=== PATIENT | female | born 1965 ===

== ENCOUNTER → 2020-03-22 14:17 | Outpatient (BNVA) | payer MEDICAID, SELFPAY | PROVIDERS: PCP Nurse Practitioner Family; Referring Provider Nurse Practitioner Family; Visit Provider Internal Medicine Gastroenterology | DX: K76.0 Fatty (change of) liver, not elsewhere classified (principal); D12.6 Benign neoplasm of colon, unspecified; Z98.890 Other specified postprocedural states | CPT/HCPCS: 99212 ==

== ENCOUNTER 2020-09-09 19:58 | Emergency (ER) | payer MEDICAID, SELFPAY ==
--- NOTE | ~2020-09-09 | CT_ITS ---
EXAMINATION: CT HEAD WITHOUT CONTRAST CLINICAL INFORMATION: Headache COMPARISON: Portions of a previous study 05/25/09 TECHNIQUE: Multidetector CT examination of the head is performed without contrast. This CT examination was performed using dose optimization techniques as appropriate, variously including the following: *Automated exposure control *Adjustment of mA and/or kV according to patient size (this includes techniques or standardized protocols for targeted exams where dose is matched to indication/reason for exam; i.e. extremities or head) *Use of iterative reconstruction technique DLP: 701 mGy-cm FINDINGS: There is no evidence of a recent intracranial hemorrhage or extra-axial collection. The midline structures are nondisplaced. The ventricles, cisterns, and sulci are within normal limits. There is no evidence of an intra-axial mass. There are no suspicious focal areas of abnormal brain attenuation. The patrick-white interface is within normal limits. There is no evidence of acute territorial infarct. The paranasal sinuses and mastoids are within normal limits. CT/CT head/brain wo con IMPRESSION: 1. There is no evidence of a recent intracranial hemorrhage. 2. No acute infarct. 3. No fluid level.
[2020-09-09 20:08] VITALS: BP 127/73; PULSE 71; RESP 18; TEMP 36.4; O2SAT 96; BMI 27.9
--- NOTE | 2020-09-09 21:13 | ED_ITS ---
HPI - General Adult General Chief complaint: General Medical Stated complaint: migraine Time Seen by Provider: 09/09/20 21:00 Source: patient Mode of arrival: ambulatory Limitations: no limitations History of Present Illness HPI narrative: 54-year-old female who presents emergency department for evaluation headache, nausea, fatigue, shortness of breath and easy bruisability. The patient states that she got the [employer] COVID-19 vaccine on 08/16/2020 (24 days prior to evaluation). She states the for the last 9 days she had a headache. She states that she really gets headaches. She describes the headache as a right-sided, constant, throbbing sensation which was 5/10 at its worst. She had associated nausea and occasional visual change of her right eye which she describes blurred vision mainly at night. The patient was taking ibuprofen 800 mg 3 times a day and she states that she took her last dose last night. She states when she woke up this morning her headache resolved. She states that she is just not feeling herself is concerned about her symptoms and is concerned that they may be related to the [employer] vaccine. She states she has noticed several bruises are not secondary to injury. She has 2 small bruises on her left and right arm in the antecubital fossa area and a smal l bruise on her left lateral hip. She denies any bleeding from her nose, gums, vagina or rectum. Related Data Previous Rx's Medication Instructions Recorded vitamin E (dl, acetate) 400 unit 400 unit PO DAILY 30 Days #30 cap 03/22/20 capsule Allergies Allergy/AdvReac Type Severity Reaction Status Date / Time Latex Allergy Unknown Hives Uncoded 09/09/20 20:16 Review of Systems Review of Systems: Yes all other systems are reviewed and are negative [facility] Past Medical History [facility] Narrative: Past medical history sent for asthma. The patient smokes 1/2 pack of cigarettes per day times 36 years, she denies alcohol and drug use. Surgical History History of colonoscopy Hx of carpal tunnel repair Hx of cholecystectomy Hx of tubal ligation Family History Family History Father No problems noted. Mother Hx of diabetes insipidus Social History Social History Alcohol intake: never Smoking Status: Never smoker Tobacco Type: Cigarette Use of substances other than those prescribed or required for medical reasons: No Advance Directives: No Advance Directives Information Provided: Yes Physical Exam Vital Signs: Vital Signs: Last Vital Signs Temp 97.5 F 09/09/20 20:08 Pulse 77 09/09/20 22:00 Resp 15 09/09/20 22:00 BP 111/67 09/09/20 22:00 Pulse Ox 96 09/09/20 22:00 Body Mass Index 27.9 Const: General: cooperative and healthy appearing Orientation/consciousness: oriented to person and oriented to place Limitations: no limitations HENMT: Head: Yes normal to inspection, Yes normocephalic and Yes atraumatic Ears: external ears normal General nose exam: Normal external nose present Face and sinus: Yes normal facial exam Mouth: Normal oral and palatal mucosa present Throat: Yes posterior oropharynx normal Eyes: Periorbital: periorbital findings normal Eyelids: Yes eyelids normal Conjunctivae: conjunctivae normal Sclerae: sclerae normal Corneas: corneas normal Pupils: Equal, round and reactive pupils present Direct Ophthalmoscopy: normal light reflex Neck: Neck: Yes full ROM, Yes no lymphadenopathy, Yes no meningeal signs, Yes trachea midline and Yes supple Chest: Chest palpation & inspection: normal inspection of the chest and normal palpation of entire chest wall Resp: Effort & Inspection: normal respiratory effort and able to speak in complete sentences Auscultation: clear to auscultation bilaterally Cardio: Rate: regular rate Rhythm: regular rhythm Heart sounds: S1 normal heart sound present, S2 normal heart sound present and no murmurs GI: Inspection: Yes normal to inspection Palpation (GI): Soft to palpation, nontender, no guarding, not rigid and No hepatosplenomegaly present Auscultation: normal bowel sounds : General: Yes no CVA tenderness Back/Spine/Pelvis: Back: no CVA tenderness Cervical Spine: normal cervical lordosis Thoracic/Lumbar Spine: thoracic and lumbar spine normal to inspection Skin: Other: Very small area of ecchymosis to her left and right antecubital fossa and to her left lateral hip. Lesions: no lesions Rashes: no rashes Wounds: no wounds Neuro: General: oriented to person, oriented to place and no meningeal signs Cranial nerves: Yes CN's II-XII intact bilaterally and Yes Equal, round and reactive pupils present Cognition (Neuro): normal cognition Motor exam (neuro): 5/5 motor strength present throughout Extrem: General: Yes normal to inspection and Yes full ROM Psych: Appearance: well kempt Mental Status: mental status grossly normal Speech and movement: Normal speech and movement present Affect: normal affect Attitude: cooperative Thought process: Normal thought process present Thought content: Normal thought content present Course Course Course Narrative: 54-year-old female who presents emergency department for evaluation of a headache that lasted 9 days which she was treating with ibuprofen 800 mg 3 times a day, her headache resolved this morning , fatigue, shortness of breath, nausea and several small bruises on her arms and left hip. Patient receive the [facility] COVID-19 vaccination 24 days prior to presentation. Patient's vital signs were normal. Physical examination reveals some very small bruises on her left and right antecubital fossa under left hip. Her exam was otherwise unremarkable. I ordered a CBC, CMP, PT INR, PTT, COVID- 19 test, urinalysis, urine on the patient. Patient's nausea was treated with Zofran ODT 4 mg dissolved in mouth. 0004: The patient's laboratory evaluation was unremarkable. The patient's coags were normal except for a slight elevation in her PTT. The patient's urinalysis was negative. COVID-[address] scan of the brain without IV contrast was negative. At this time I suspect the patient may have a viral syndrome not related to the [employer] COVID-19 vaccination. I did discuss this with the patient. The patient was discharged home. She was given a note not return to work until 09/13/2020. Medical Decision Making Lab Data Result diagrams: 09/09/20 23:01 09/09/20 23:01 Labs: Lab Results 09/09/20 09/09/20 09/09/20 Range/Units 22:18 22:18 23:01 WBC 9.5 (4.8-10.8) X10*3/uL RBC 4.32 (4.20-5.50) X10*6/uL Hgb 13.2 (12.0-16.0) g/dl Hct 40.0 (37-47) % MCV 92.6 (80-98) fL MCH 30.6 (27.0-33.0) pg MCHC 33.0 (31.0-35.0) g/dl RDW 13.2 (11.0-16.0) % Plt Count 224 (160-400) X10*3/uL MPV 10.9 (9.4-12.3) fL Immature Gran % (Auto) 0.3 (0.0-0.4) % Neut % (Auto) 51.5 (45-73) % Lymph % (Auto) 37.8 (20-40) % [place] % (Auto) 5.9 (2-11) % Eos % (Auto) 3.9 (0-4) % Baso % (Auto) 0.6 (0-2) % Lymph # (Auto) 3.6 (1.2-4.9) X10*3/uL [place] # (Auto) 0.6 (0.1-1.2) X10*3/uL Eos # (Auto) 0.4 (0.0-0.4) X10*3/uL Baso # (Auto) 0.1 (0.0-0.2) X10*3/uL Abs Immat Gran (auto) 0.03 (0.00-0.03) X10*3/uL Absolute Neuts (auto) 4.9 (2.0-8.3) X10*3/uL Absolute Nucleated RBC 0.000 (0.0-0.012) X10*3/uL Nucleated RBC % (auto) 0.0 (0.0-0.2) /100WBC PT (10.8-13.0) SEC INR (0.9-1.1) APTT (24.1-38.0) SEC Sodium (135-145) mmol/L Potassium (3.3-5.1) mmol/L Chloride (96-108) mmol/L Carbon Dioxide (22-29) mmol/L Anion Gap (12-20) BUN (9-16) mg/dL Creatinine (0.5-1.4) mg/dL Estim Creat Clear Calc Estimated GFR Random Glucose (60-115) mg/dL Calcium (8.4-10.2) mg/dL Total Bilirubin (0.0-1.0) mg/dL AST (5-31) U/L ALT (0-31) U/L Alkaline Phosphatase (39-117) U/L Total Protein (6.5-8.0) g/dL Albumin (3.5-5.0) g/dL Urine Color YELLOW Urine Appearance CLEAR Urine pH 6.0 (5.0-8.0) Ur Specific [place] 1.020 (1.005-1.025) Urine Protein NEG (NEG-TRACE) MG/DL Urine Glucose (UA) NEG (NEG) MG/DL Urine Ketones NEG (NEG) MG/DL Urine Blood NEG (NEG) Urine Nitrite NEG (NEG) Ur Leukocyte Esterase NEG (NEG) Urine Test NEGATIVE (NEGATIVE) COVID-19 (RADHA) (Negative) COVID-19 Clin Com 09/09/20 09/09/20 09/09/20 Range/Units 23:01 23:01 23:01 WBC (4.8-10.8) X10*3/uL RBC (4.20-5.50) X10*6/uL Hgb (12.0-16.0) g/dl Hct (37-47) % MCV (80-98) fL MCH (27.0-33.0) pg MCHC (31.0-35.0) g/dl RDW (11.0-16.0) % Plt Count (160-400) X10*3/uL MPV (9.4-12.3) fL Immature Gran % (Auto) (0.0-0.4) % Neut % (Auto) (45-73) % Lymph % (Auto) (20-40) % [place] % (Auto) (2-11) % Eos % (Auto) (0-4) % Baso % (Auto) (0-2) % Lymph # (Auto) (1.2-4.9) X10*3/uL [place] # (Auto) (0.1-1.2) X10*3/uL Eos # (Auto) (0.0-0.4) X10*3/uL Baso # (Auto) (0.0-0.2) X10*3/uL Abs Immat Gran (auto) (0.00-0.03) X10*3/uL Absolute Neuts (auto) (2.0-8.3) X10*3/uL Absolute Nucleated RBC (0.0-0.012) X10*3/uL Nucleated RBC % (auto) (0.0-0.2) /100WBC PT 12.9 (10.8-13.0) SEC INR 1.1 (0.9-1.1) APTT 46.5 H (24.1-38.0) SEC Sodium 141 (135-145) mmol/L Potassium 3.7 (3.3-5.1) mmol/L Chloride 106 (96-108) mmol/L Carbon Dioxide 24 (22-29) mmol/L Anion Gap 15 (12-20) BUN 13 (9-16) mg/dL Creatinine 0.80 (0.5-1.4) mg/dL Estim Creat Clear Calc 93.1 Estimated GFR > 60 Random Glucose 109 (60-115) mg/dL Calcium 9.4 (8.4-10.2) mg/dL Total Bilirubin 0.5 (0.0-1.0) mg/dL AST 17 (5-31) U/L ALT 38 H (0-31) U/L Alkaline Phosphatase 85 (39-117) U/L Total Protein 7.7 (6.5-8.0) g/dL Albumin 4.2 (3.5-5.0) g/dL Urine Color Urine Appearance Urine pH (5.0-8.0) Ur Specific [place] (1.005-1.025) Urine Protein (NEG-TRACE) MG/DL Urine Glucose (UA) (NEG) MG/DL Urine Ketones (NEG) MG/DL Urine Blood (NEG) Urine Nitrite (NEG) Ur Leukocyte Esterase (NEG) Urine Test (NEGATIVE) COVID-19 (RADHA) Negative (Negative) COVID-19 Clin Com See Note Discharge Plan Discharge Clinical Impression: Nausea, Viral syndrome Headache Qualifiers: Headache type: other headache syndrome Qualified Code(s): G44.89 - Other headache syndrome Patient Disposition: Home, Self-Care Instructions: Viral Syndrome (ED) Additional Instructions: Take ibuprofen 200 mg pills, 3 pills every 6 hours as needed for pain. Take Tylenol (acetaminophen) 500 mg pills, 2 pills every 4 to 6 hours as needed for pain. Follow-up with your doctor in 2 days. Please return to the emergency department if your symptoms get worse or if you develop any symptoms that are concerning to you. Prescriptions: No Action vitamin E (dl, acetate) 400 unit capsule 400 unit PO DAILY 30 Days Qty: 30 RF: 11 Stand Alone Forms: Work/School Release Interventions: ED Discharge Assessment Last Done: 09/10/20 00:34
[2020-09-09 22:00] VITALS: BP 111/67; PULSE 77; RESP 15; O2SAT 96
[2020-09-09 22:25] LABS: Glucose Urine UA NEG (NEG); Leukocyte Esterase Urine NEG (NEG); Nitrite Urine NEG (NEG); Urine Blood NEG (NEG); Urine Ketones NEG (NEG); Urine Protein NEG (NEG-TRACE)
[2020-09-09 22:26] LABS: Appearance Urine CLEAR; Color Urine YELLOW; UPreg QC Valid YES; Urine Pregnancy NEGATIVE (NEGATIVE)
[2020-09-09 23:09] LABS: Basophils Absolute Auto 0.1 X10*3/uL (0.0-0.2); Basophils Percent Auto 0.6 % (0-2); Eosinophils Absolute Auto 0.4 X10*3/uL (0.0-0.4); Eosinophils Percent Auto 3.9 % (0-4); Hemoglobin 13.2 g/dl (12.0-16.0); Imm Gran Abs Auto 0.03 X10*3/uL (0.00-0.03); Imm Gran Pct Auto 0.3 % (0.0-0.4); Lymphocytes Absolute Auto 3.6 X10*3/uL (1.2-4.9); Lymphocytes Percent Auto 37.8 % (20-40); MANUAL DIFF FLAG NO; Mean Corpuscular Hemoglobin 30.6 pg (27.0-33.0); Mean Corpuscular Volume 92.6 fL (80-98); Mean Platelet Volume 10.9 fL (9.4-12.3); Monocytes Absolute Auto 0.6 X10*3/uL (0.1-1.2); Monocytes Percent Auto 5.9 % (2-11); Neutrophils Absolute Auto 4.9 X10*3/uL (2.0-8.3); Neutrophils Percent Auto 51.5 % (45-73); Platelet Count 224 X10*3/uL (160-400); Red Blood Count 4.32 X10*6/uL (4.20-5.50); Red Cell Distribution Width 13.2 % (11.0-16.0); White Blood Count 9.5 X10*3/uL (4.8-10.8)
[2020-09-09 23:18] LABS: INTERNATIONAL NORM RATIO 1.1 (0.9-1.1); Prothrombin Time 12.9 SEC (10.8-13.0)
[2020-09-09 23:29] LABS: COVID-19 Test Negative (Negative); IDNOW Serial# 9DD0AD1C; Partial Thromboplastin Time 46.5 SEC (24.1-38.0)
[2020-09-09 23:35] LABS: Alanine Aminotransferase 38 U/L (0-31); Albumin Level 4.2 g/dL (3.5-5.0); Alkaline Phosphatase 85 U/L (39-117); Anion Gap 15 (12-20); Aspartate Amino Transferase 17 U/L (5-31); Bilirubin Total 0.5 mg/dL (0.0-1.0); Blood Urea Nitrogen 13 mg/dL (9-16); Calcium 9.4 mg/dL (8.4-10.2); Carbon Dioxide 24 mmol/L (22-29); Chloride 106 mmol/L (96-108); Creatinine Clr Calc Pharmacy 93.1; Estimated Glomerular Filt Rate > 60; Glucose Random 109 mg/dL (60-115); Potassium 3.7 mmol/L (3.3-5.1); Sodium 141 mmol/L (135-145); Total Protein 7.7 g/dL (6.5-8.0)
== END 2020-09-10 00:34 | disposition home or self-care (01) ==
PROVIDERS: Emergency Provider Emergency Medicine Emergency Medical Services
DX: B34.9 Viral infection, unspecified (principal); G44.89 Other headache syndrome; R11.0 Nausea; F17.210 Nicotine dependence, cigarettes, uncomplicated; Z71.6 Tobacco abuse counseling; Z20.822 Contact with and (suspected) exposure to COVID-19
CPT/HCPCS: 36415; 70450; 80053; 81003; 81025; 85025; 85610; 85730; 87635; 99284

== ENCOUNTER 2020-10-20 13:59 | Outpatient (REF) | payer MEDICAID, SELFPAY ==
--- NOTE | ~2020-10-20 | MM_ITS ---
EXAMINATION: MM SCREENING DIGITAL BREAST TOMOSYNTHESIS, BILATERAL CLINICAL INFORMATION: Screening. Asymptomatic. The lifetime risk of breast cancer based on the Tyrer-Cuzick Model is 18%. COMPARISON: Mammography: 04/23/2019, 04/17/2018, 03/07/2017 TECHNIQUE: Digital breast tomosynthesis is performed in both the craniocaudal and mediolateral oblique views along with computer-aided detection (CAD). Synthesized 2D images are generated from the tomosynthesis. FINDINGS: There are scattered areas of fibroglandular density (ACR BI-RADS breast composition Category b). Findings fibronodular pattern is similar to prior studies. There is no interval mass or architectural abnormality. No abnormal calcifications. Skin contours are smooth. No significant changes from prior studies. MM/MM tomosynthesis screening BI IMPRESSION: No mammographic evidence of malignancy. ASSESSMENT: BI-RADS 1: Negative RECOMMENDATION: Routine annual mammography screening. This patient's information was entered into a reminder system with a target due date for their next mammogram.
== END 2020-10-20 14:00 | disposition home or self-care (01) ==
LOC: HO.MAMMO 13:59
PROVIDERS: Visit Provider Nurse Practitioner Family
DX: Z12.31 Encounter for screening mammogram for malignant neoplasm of breast (principal)
CPT/HCPCS: 77063; 77067

== ENCOUNTER 2020-12-22 20:28 | Emergency (ER) | payer MEDICAID, SELFPAY ==
--- NOTE | ~2020-12-22 | XR_ITS ---
EXAMINATION: XR TOES, RIGHT CLINICAL INFORMATION: Pain and swelling of fifth toe COMPARISON: None TECHNIQUE: 3 views of the right toes were obtained. FINDINGS: There is a mildly comminuted and displaced transverse fracture of the distal shaft of the proximal phalangeal the fifth toe. Fracture line extends the articular surface of bone at the IP joint. There is no dislocation. XR/XR toe RT min 2V IMPRESSION: Fracture of the proximal phalangeal the fifth toe
[2020-12-22 20:36] VITALS: BP 106/67; PULSE 90; RESP 18; TEMP 36.6; O2SAT 98; BMI 28.1
--- NOTE | 2020-12-22 22:10 | ED.LOWEXIN ---
HPI - Extremity Injury (Lower) General Chief Complaint: Extremity Injury, Lower Stated Complaint: pinky inj Time Seen by Provider: 12/22/20 22:10 Source: patient Mode of arrival: ambulatory History of Present Illness HPI Narrative: 55-year-old female presenting to the ED complaining of right 5th toe pain and swelling s/p getting caught under couch [employer]. Reports mild tingling. Denies numbness, injury to other area, fever, chills complaint: foot injury Related Data Previous Rx's Medication Instructions Recorded vitamin E (dl, acetate) 180 mg 400 unit PO DAILY 30 Days #30 cap 03/22/20 (400 unit) capsule Allergies Allergy/AdvReac Type Severity Reaction Status Date / Time Latex Allergy Unknown Hives Uncoded 09/09/20 20:16 Review of Systems Review of Systems: Constitutional: No Fever, No Chills Musculoskeletal: + joint pain, No Myalgias, + Joint Swelling Skin: No Skin Lesions, No rash Neuro: No Weakness, No Numbness, + Paresthesias Yes all other systems are reviewed and are negative [facility] Past Medical History Attestation statement: The following information was validated with the patient. Surgical History History of colonoscopy Hx of carpal tunnel repair Hx of cholecystectomy Hx of tubal ligation Family History Family History Father No problems noted. Mother Hx of diabetes insipidus Social History Social History Unable to assess alcohol history related to: Unable to respond Alcohol intake: never Advance Directives: No Advance Directives Information Provided: Yes Patient : No Physical Exam Vital Signs: Vital Signs: Last Vital Signs Temp 97.8 F 12/22/20 20:36 Pulse 90 12/22/20 20:36 Resp 18 12/22/20 20:36 BP 106/67 12/22/20 20:36 Pulse Ox 98 12/22/20 20:36 Body Mass Index 28.1 Const: General: cooperative and healthy appearing Orientation/consciousness: patient oriented x3 Limitations: no limitations HENMT: Head: Yes normal to inspection Ears: hearing grossly normal bilaterally General nose exam: Normal external nose present Face and sinus: Yes normal facial exam Eyes: General: appearance normal, both eyes and all related structures EOM: EOMs intact bilaterally Neck: Neck: Yes normal visual inspection Resp: Effort & Inspection: normal respiratory effort and no respiratory distress Cardio: Rate: regular rate Peripheral pulses: dorsalis pedis present Skin: Rashes: no rashes Wounds: no wounds Neuro: General: patient oriented x3 Gait exam (Neuro): Normal gait present Extrem: Other: Right 5th toe with notable swelling, erythema and ecchymosis. Tender to palpation. NV intact. Sensation intact to light touch Course Course Course Narrative: XR toe RT min 2V IMPRESSION: Fracture of the proximal phalangeal the fifth toe >> annalise-tape apply to does Discharge Plan Discharge Clinical Impression: Fracture of fifth toe, right, closed Qualifiers: Encounter type: initial encounter Qualified Code(s): S92.501A - Displaced unspecified fracture of right lesser toe(s), initial encounter for closed fracture Patient Disposition: Home, Self-Care Instructions: Toe Fracture (ED) Additional Instructions: You have a fracture of her 5th toe Apply annalise tape at home Follow-up with Orthopedics Ice and elevate her foot Take Tylenol Motrin for pain Very begins look infected, pain is unbearable, or for becomes numb return to the ED please Prescriptions: No Action vitamin E (dl, acetate) 400 unit capsule 400 unit PO DAILY 30 Days Qty: 30 RF: 11 Referrals: Joselyn Callahan PA-C [Physician Director Of Public Works] - 1 week
== END 2020-12-22 22:44 | disposition home or self-care (01) ==
PROVIDERS: Emergency Provider Emergency Medicine
DX: S92.501A Displaced unspecified fracture of right lesser toe(s), initial encounter for closed fracture (principal); M79.671 Pain in right foot; Y29.XXXA Contact with blunt object, undetermined intent, initial encounter; Y93.9 Activity, unspecified; Y92.009 Unspecified place in unspecified non-institutional (private) residence as the place of occurrence of the external cause; Y99.9 Unspecified external cause status
CPT/HCPCS: 73660; 99283

== ENCOUNTER → 2021-01-02 14:18 | Outpatient (BNVA) | payer MEDICAID, SELFPAY | PROVIDERS: Visit Provider Physician Assistant | DX: S92.501D Displaced unspecified fracture of right lesser toe(s), subsequent encounter for fracture with routine healing (principal) | CPT/HCPCS: 99202 ==

== ENCOUNTER → 2021-01-08 14:50 | Outpatient (BNVA) | payer MEDICAID, SELFPAY | PROVIDERS: Visit Provider Orthopaedic Surgery | DX: M65.331 Trigger finger, right middle finger (principal); M65.341 Trigger finger, right ring finger | CPT/HCPCS: 20550; 99202; J1100 ==

== ENCOUNTER 2021-01-20 19:22 | Emergency (ER) | payer MEDICAID, SELFPAY ==
--- NOTE | ~2021-01-20 | XR_ITS ---
EXAMINATION: XR CHEST CLINICAL INFORMATION: Left chest wall pain COMPARISON: None TECHNIQUE: 2 views of the chest were obtained. FINDINGS: No significant abnormality is noted involving the heart, lungs, mediastinum, bony thorax or soft tissues. Anterior cervical spine fusion partially imaged. Single surgical clip present in the right upper quadrant. XR/XR chest 2V IMPRESSION: No acute intrathoracic disease.
[2021-01-20 21:24] VITALS: BP 134/87; PULSE 81; RESP 18; TEMP 36.7; O2SAT 97; BMI 28.2
[2021-01-20 22:02] LABS: MANUAL DIFF FLAG NO
[2021-01-20 22:03] LABS: Basophils Absolute Auto 0.1 X10*3/uL (0.0-0.2); Basophils Percent Auto 0.7 % (0-2); Eosinophils Absolute Auto 0.3 X10*3/uL (0.0-0.4); Eosinophils Percent Auto 2.7 % (0-4); Hemoglobin 13.4 g/dl (12.0-16.0); Imm Gran Abs Auto 0.03 X10*3/uL (0.00-0.03); Imm Gran Pct Auto 0.3 % (0.0-0.4); Lymphocytes Absolute Auto 3.4 X10*3/uL (1.2-4.9); Lymphocytes Percent Auto 31.1 % (20-40); Mean Corpuscular HGB Conc 34.4 g/dl (31.0-35.0); Mean Corpuscular Hemoglobin 31.5 pg (27.0-33.0); Mean Corpuscular Volume 91.5 fL (80-98); Mean Platelet Volume 10.4 fL (9.4-12.3); Monocytes Absolute Auto 0.7 X10*3/uL (0.1-1.2); Monocytes Percent Auto 6.3 % (2-11); Neutrophils Absolute Auto 6.5 X10*3/uL (2.0-8.3); Neutrophils Percent Auto 58.9 % (45-73); Platelet Count 210 X10*3/uL (160-400); Red Blood Count 4.26 X10*6/uL (4.20-5.50); Red Cell Distribution Width 13.4 % (11.0-16.0)
[2021-01-20 22:04] VITALS: BP 120/82; PULSE 69; RESP 18; TEMP 36.7; O2SAT 98
[2021-01-20 22:15] LABS: Appearance Urine CLEAR; Color Urine YELLOW; Glucose Urine UA NEG (NEG); Leukocyte Esterase Urine TRACE (NEG); Nitrite Urine NEG (NEG); UACC Culture Trigger YES; Urine Blood NEG (NEG); Urine Ketones NEG (NEG); Urine Protein NEG (NEG-TRACE)
[2021-01-20 22:24] LABS: Alanine Aminotransferase 46 U/L (0-31); Albumin Level 4.2 g/dL (3.5-5.0); Alkaline Phosphatase 89 U/L (39-117); Anion Gap 12 (12-20); Aspartate Amino Transferase 20 U/L (5-31); Bilirubin Total 0.4 mg/dL (0.0-1.0); Blood Urea Nitrogen 8 mg/dL (9-16); Calcium 9.4 mg/dL (8.4-10.2); Carbon Dioxide 23 mmol/L (22-29); Chloride 109 mmol/L (96-108); Creatinine Clr Calc Pharmacy 97.3; Estimated Glomerular Filt Rate > 60; Glucose Random 99 mg/dL (60-115); Lipase 28 U/L (8-78); Potassium 3.8 mmol/L (3.3-5.1); Sodium 140 mmol/L (135-145); Total Protein 7.8 g/dL (6.5-8.0)
[2021-01-20 22:34] LABS: Bacteria Urine TRACE /LPF; Mucus Urine TRACE /LPF; RBC Urine 0-2 /HPF (0); Squamous Epithelial Cell Urine TRACE /LPF; WBC Urine 0-2 /HPF (0-4)
--- NOTE | 2021-01-20 22:47 | ED.ABDPAIN ---
HPI - Abdominal Pain General Chief Complaint: Abdominal Pain Stated Complaint: Upper abdominal pain Time Seen by Provider: 01/20/21 21:39 Source: patient Mode of arrival: ambulatory History of Present Illness HPI narrative: This is a 55-year-old female who presents with 1 year of lower left chest wall aching that is nonradiating and then over the past 1 month has increased intensity and this is not been associated with any fever, chills, night sweats, unintentional weight loss, gum bleeding while brushing teeth, but she does state she has intermittent nausea. Otherwise she denies diarrhea or symptoms. Patient reports daily bowel movements. Patient is an everyday smoker. Related Data Previous Rx's Medication Instructions Recorded vitamin E (dl, acetate) 180 mg 400 unit PO DAILY 30 Days #30 cap 03/22/20 (400 unit) capsule Allergies Allergy/AdvReac Type Severity Reaction Status Date / Time Latex Allergy Unknown Hives Uncoded 09/09/20 20:16 Review of Systems Review of Systems Pertinent positives and negatives as stated in HPI 10 point review of systems is otherwise negative. Physical Exam Vital Signs: Vital Signs: Last Vital Signs Temp 98.1 F 01/20/21 22:04 Pulse 69 01/20/21 22:04 Resp 18 01/20/21 22:04 BP 120/82 01/20/21 22:04 Pulse Ox 98 01/20/21 22:04 Body Mass Index 28.2 VITAL SIGNS: Reviewed. GENERAL: Well developed, well nourished, in no acute distress. HEAD: Normocephalic/atraumatic EYES: PERRLA, EOMI OROPHARYNX: no oral lesions noted, posterior pharynx clear and non-erythematous without noted tonsillar enlargement/erythema/exudates NECK: Supple, no adenopathy LUNGS: Normal breath sounds. No adventitious sounds or accessory muscle use. SpO2<98>, minimal pain on palpation over left anterior lower rib area without crepitus or deformity noted CARDIOVASCULAR: Regular rate and rhythm without noted murmurs, no JVD or lower extremity edema. ABDOMEN: Soft, non-tender, non-distended with bowel sounds. SKIN: Inspection of the skin reveals no rashes, jaundice, pallor, or petechiae. NEUROLOGIC: Alert and oriented x 4. Strength and sensation to light touch were grossly intact x 4. Course Course Course Narrative: 55-year-old female with history and clinical presentation suggestive of gastritis or musculoskeletal pain, and low clinical suspicion for intra-abdominal pathology such as pneumonia, pancreatitis, gastritis/pyelonephritis. Review of all investigations without acute findings. All results were discussed with patient bedside and she was encouraged to follow-up with her primary care provider for further outpatient workup. MDM - Abdominal Pain Lab Data Result diagrams: 01/20/21 21:57 01/20/21 21:58 Labs: Lab Results 01/20/21 01/20/21 01/20/21 Range/Units 21:53 21:57 21:58 WBC 11.0 H (4.8-10.8) X10*3/uL RBC 4.26 (4.20-5.50) X10*6/uL Hgb 13.4 (12.0-16.0) g/dl Hct 39.0 (37-47) % MCV 91.5 (80-98) fL MCH 31.5 (27.0-33.0) pg MCHC 34.4 (31.0-35.0) g/dl RDW 13.4 (11.0-16.0) % Plt Count 210 (160-400) X10*3/uL MPV 10.4 (9.4-12.3) fL Immature Gran % (Auto) 0.3 (0.0-0.4) % Neut % (Auto) 58.9 (45-73) % Lymph % (Auto) 31.1 (20-40) % [place] % (Auto) 6.3 (2-11) % Eos % (Auto) 2.7 (0-4) % Baso % (Auto) 0.7 (0-2) % Lymph # (Auto) 3.4 (1.2-4.9) X10*3/uL [place] # (Auto) 0.7 (0.1-1.2) X10*3/uL Eos # (Auto) 0.3 (0.0-0.4) X10*3/uL Baso # (Auto) 0.1 (0.0-0.2) X10*3/uL Abs Immat Gran (auto) 0.03 (0.00-0.03) X10*3/uL Absolute Neuts (auto) 6.5 (2.0-8.3) X10*3/uL Absolute Nucleated RBC 0.000 (0.0-0.012) X10*3/uL Nucleated RBC % (auto) 0.0 (0.0-0.2) /100WBC Sodium 140 (135-145) mmol/L Potassium 3.8 (3.3-5.1) mmol/L Chloride 109 H (96-108) mmol/L Carbon Dioxide 23 (22-29) mmol/L Anion Gap 12 (12-20) BUN 8 L (9-16) mg/dL Creatinine 0.76 (0.5-1.4) mg/dL Estim Creat Clear Calc 97.3 Estimated GFR > 60 Random Glucose 99 (60-115) mg/dL Calcium 9.4 (8.4-10.2) mg/dL Total Bilirubin 0.4 (0.0-1.0) mg/dL AST 20 (5-31) U/L ALT 46 H (0-31) U/L Alkaline Phosphatase 89 (39-117) U/L Total Protein 7.8 (6.5-8.0) g/dL Albumin 4.2 (3.5-5.0) g/dL Lipase 28 (8-78) U/L Urine Color YELLOW Urine Appearance CLEAR Urine pH 6.0 (5.0-8.0) Ur Specific [place] 1.020 (1.005-1.025) Urine Protein NEG (NEG-TRACE) MG/DL Urine Glucose (UA) NEG (NEG) MG/DL Urine Ketones NEG (NEG) MG/DL Urine Blood NEG (NEG) Urine Nitrite NEG (NEG) Ur Leukocyte Esterase TRACE H (NEG) Urine RBC 0-2 (0) /HPF Urine WBC 0-2 (0-4) /HPF Ur Squamous Epith Cells TRACE /LPF Urine Bacteria TRACE /LPF Urine Mucus TRACE /LPF Discharge Plan Discharge Clinical Impression: Abdominal pain Patient Disposition: Home, Self-Care Instructions: Abdominal Pain (ED) Additional Instructions: 1. Follow-up with your primary care provider in the next 2-3 days for re-evaluation further outpatient management. Return to the ER for acute worsening of symptoms. Prescriptions: No Action vitamin E (dl, acetate) 400 unit capsule 400 unit PO DAILY 30 Days Qty: 30 RF: 11 Referrals: Physician,Unknown [Primary Care Provider] - 2 days [facility] Past Medical History Source: nursing notes reviewed Surgical History History of colonoscopy Hx of carpal tunnel repair Hx of cholecystectomy Hx of tubal ligation Family History Family History Father No problems noted. Mother Hx of diabetes insipidus Social History Social History Unable to assess alcohol history related to: Unable to respond Alcohol intake: never Advance Directives: No Advance Directives Information Provided: Yes Patient : No Current occupational status: disabled Current occupation: rt handed
[2021-01-20] MEDS: Lidocaine HCl Viscous 2 % 15 ML SOLUTION 10 ML MUCOUS MEM (23:17)
[2021-01-20] MEDS: Magnesium Hydrox/Alum Hydrox 30 ML ORAL.SUSP PO (23:19)
--- NOTE | 2021-01-20 23:45 | PC.NURSE ---
pt has been requesting a sandwich since she has arrived at the er. no complaint of nausea/vomiting. pt has finished sandwich, crackers and soda.
[2021-01-21] VITALS: BP 134/72; PULSE 78; RESP 16; O2SAT 96
== END 2021-01-21 00:28 | disposition home or self-care (01) ==
PROVIDERS: Emergency Provider Student in an Organized Health Care Education/Training Program
DX: R10.32 Left lower quadrant pain (principal); R07.89 Other chest pain; Z79.899 Other long term (current) drug therapy
CPT/HCPCS: 36415; 71046; 80053; 81001; 83690; 85025; 87086; 99284

== ENCOUNTER 2021-02-16 14:26 | Outpatient (REF) | payer MEDICAID, SELFPAY ==
--- NOTE | ~2021-02-16 | US_ITS ---
EXAMINATION: US ABDOMEN COMPLETE CLINICAL INFORMATION: Left upper quadrant pain. COMPARISON: Ultrasound abdomen complete dated 11/02/2010 and 12/29/2007. TECHNIQUE: Real-time imaging of the abdominal viscera. FINDINGS: PANCREAS: Not well visualized ABDOMINAL AORTA: The proximal, mid, and distal segments are normal in caliber. INFERIOR VENA CAVA: Visualized portions are normal. LIVER: Liver echotexture is increased probably representing fatty infiltration. The liver is enlarged. The liver contour is normal. No focal hepatic lesion. There is no intrahepatic biliary duct dilatation seen. GALLBLADDER: Surgically absent. COMMON BILE DUCT: Normal in caliber measuring 0.6 cm in diameter. RIGHT KIDNEY: Normal. No hydronephrosis. No renal calculi or focal parenchymal lesions. The kidney measures 10.8 cm in maximum dimension. LEFT KIDNEY: Normal. No hydronephrosis. No renal calculi or focal parenchymal lesions. The kidney measures 10.8 cm in maximum dimension. SPLEEN: Normal. The spleen measures 10.4 cm in maximum dimension. FREE FLUID: None. US/US abdomen complete IMPRESSION: Enlarged echogenic liver suggestive of fatty infiltration. Limited visualization of the pancreas. Otherwise unremarkable exam.
== END 2021-02-16 14:27 | disposition home or self-care (01) ==
LOC: HO.US 14:26
PROVIDERS: Visit Provider Nurse Practitioner
DX: R10.12 Left upper quadrant pain (principal)
CPT/HCPCS: 76700

== ENCOUNTER 2021-03-05 14:18 | Outpatient (REF) | payer MEDICAID, SELFPAY ==
--- NOTE | ~2021-03-05 | XR_ITS ---
EXAMINATION: XR SHOULDER, RIGHT CLINICAL INFORMATION: Right shoulder pain COMPARISON: 08/07/2018 TECHNIQUE: AP external rotation, Grashey, scapular Y, and axillary views of the right shoulder. FINDINGS: There is no fracture or dislocation. The glenohumeral joint space is well aligned and maintained. Small marginal osteophytes are present. The acromioclavicular joint is intact. Soft tissue calcification adjacent to the humeral greater tuberosity suggestive of calcific tendinosis of the rotator cuff. The visualized lung is clear. The visualized ribs are intact. XR/XR shoulder RT min 2V IMPRESSION: Mild degenerative change of the glenohumeral joint. Calcific tendinosis of the rotator cuff. These have increased from 2019.
== END 2021-03-05 14:19 | disposition home or self-care (01) ==
LOC: HO.XRAY 14:18
PROVIDERS: PCP General Practice; Visit Provider General Practice
DX: M25.511 Pain in right shoulder (principal)
CPT/HCPCS: 73030

== ENCOUNTER 2021-03-19 14:47 | Outpatient (REF) | payer MEDICAID, SELFPAY ==
[2021-03-19 16:35] LABS: Alanine Aminotransferase 43 U/L (0-31); Albumin Level 4.7 g/dL (3.5-5.0); Alkaline Phosphatase 96 U/L (39-117); Aspartate Amino Transferase 21 U/L (5-31); Bilirubin Direct 0.2 mg/dL (0.0-0.5); Bilirubin Total 0.5 mg/dL (0.0-1.0); Total Protein 8.4 g/dL (6.5-8.0)
[2021-03-20 12:47] LABS: Alpha Fetoprotein 4.1 ng/mL
[2021-03-21 09:23] LABS: HBS Num1 15.13 mIU/mL (0-7.99); HBsAGNum1 0.21 S/CO (0.00-0.99); HIV AB/AG Nonreactive (Nonreactive); HIV Num 1 0.05 S/CO (0.00-0.99); Hepatitis A Antibody IgM 0.19 Index (0-0.79); Hepatitis B Surface Antigen Negative (Negative); ~HepC Num1 0.15 S/CO (0.00-0.79); ~Hepatitis A Antibody IgM Nonreactive (Nonreactive); ~Hepatitis B Surface Antibody REACTIVE (Nonreactive); ~Hepatitis C Antibody Nonreactive (Nonreactive)
[2021-03-21 09:41] LABS: HBc Num1 0.12 S/CO (0.00-0.79); Hepatitis B Core Antibody Nonreactive (Nonreactive)
== END 2021-03-19 14:48 | disposition home or self-care (01) ==
LOC: HO.LAB 14:47
PROVIDERS: PCP General Practice; Referring Provider General Practice; Visit Provider Nurse Practitioner
DX: K75.81 Nonalcoholic steatohepatitis (NASH) (principal); K64.9 Unspecified hemorrhoids; Z86.010 Personal history of colon polyps
CPT/HCPCS: 36415; 80076; 82105; 86704; 86706; 86709; 86803; 87340; 87389; 99212

== ENCOUNTER → 2021-04-16 15:23 | Outpatient (BNVA) | payer MEDICAID, SELFPAY | PROVIDERS: PCP General Practice; Referring Provider General Practice; Visit Provider Nurse Practitioner | DX: K75.81 Nonalcoholic steatohepatitis (NASH) (principal); D12.6 Benign neoplasm of colon, unspecified | CPT/HCPCS: 99212 ==

== ENCOUNTER 2021-05-10 15:38 | Outpatient (REF) | payer MEDICAID, SELFPAY ==
--- NOTE | ~2021-05-10 | XR_ITS ---
EXAMINATION: XR CERVICAL SPINE CLINICAL INFORMATION: Pain COMPARISON: Previous cervical spine x-ray January 2017 TECHNIQUE: 5 views of the cervical spine were obtained. FINDINGS: There is ACDF with anterior plate and screws at C5-C6. There appears to be ankylosis at the C5-C6 disc space level. There is mild degenerative spondylosis at C4-C5. Disc spaces are normal. There is mild left-sided neuroforaminal narrowing from bony osteophyte at C3-C4 and mild bilateral neuroforaminal narrowing at C5-C6. Prevertebral soft tissues are normal. XR/XR cervical spine 4V IMPRESSION: Stable postsurgical changes at C5-C6. Mild degenerative changes.
== END 2021-05-10 15:39 | disposition home or self-care (01) ==
LOC: HO.XRAY 15:38
PROVIDERS: PCP General Practice; Visit Provider General Practice
DX: M54.2 Cervicalgia (principal)
CPT/HCPCS: 72050

== ENCOUNTER 2021-05-11 03:31 | Emergency (ER) | payer MEDICAID, SELFPAY ==
[2021-05-11 04:01] VITALS: BP 00/00; PULSE 86; RESP 16; TEMP 36.6; O2SAT 95; BMI 28.1
--- NOTE | 2021-05-11 05:22 | ED.BACK ---
HPI - Back Pain/Injury General Chief Complaint: Back Pain/Injury Stated Complaint: Back pain/?Pinch nerve Time Seen by Provider: 05/11/21 05:17 Source: patient Limitations: no limitations History of Present Illness HPI Narrative: This is a 55-year-old female with a history of cervical spine surgery in 2006 after she had a pinched nerve . Patient complains of recurrence of similar pain recently with pain in her right upper back and tingling in her right arm and hand. Patient denies any injury that precipitated recurrence. She notes that she had had x-rays ordered yesterday, which she had done. She notes the pain is worse with moving head. She denies any trouble urinating, denies any lower extremity numbness or weakness Related Data Home Medications Medication Instructions Recorded Confirmed tolterodine 4 mg capsule,extended 4 mg PO DAILY 03/19/21 release 24 hr Previous Rx's Medication Instructions Recorded hydrocortisone 2.5 % topical cream 1 appl NM BID #30 g 03/19/21 with perineal applicator (Proctosol HC) vitamin E (dl, acetate) 180 mg 180 mg PO DAILY #30 cap 04/03/21 (400 unit) capsule baclofen 10 mg tablet 10 mg PO QID #28 tab 05/11/21 oxycodone-acetaminophen 5 mg-325 1 tab PO Q4H PRN #14 tab 05/11/21 mg tablet (Percocet) prednisone 50 mg tablet 50 mg PO DAILY #5 tab 05/11/21 Allergies Allergy/AdvReac Type Severity Reaction Status Date / Time Latex Allergy Unknown Hives Uncoded 09/09/20 20:16 Review of Systems Constitutional: Constitutional: Reports as per HPI and Denies headache(s) Eyes: Eyes: Reports no additional eye complaints ENT: Reports system reviewed and no additional complaints, except as documented and Denies headache(s) Cardiovascular: Cardiovascular: Reports no additional cardiovascular complaints Respiratory: Respiratory: Reports no additional respiratory complaints Gastrointestinal: Gastrointestinal: Reports no additional gastrointestinal complaints Musculoskeletal: Musculoskeletal: Reports back pain ( right upper) and Reports tingling Neurologic: Denies headache(s), Denies Sensory deficit (Neuro) and Reports tingling PMFSH Past Medical History Surgical History History of colonoscopy Hx of carpal tunnel repair Hx of cholecystectomy Hx of tubal ligation Family History Family History Father No problems noted. Mother Hx of diabetes insipidus Social History Social History Unable to assess alcohol history related to: Unable to respond Alcohol intake: never Advance Directives: No Patient : No Current occupational status: disabled Current occupation: rt handed Physical Exam Vital Signs: Vital Signs: Last Vital Signs Temp 97.8 F 05/11/21 04:01 Pulse 86 05/11/21 04:01 Resp 16 05/11/21 04:01 BP 00/00 L 05/11/21 04:01 Pulse Ox 95 05/11/21 04:01 BMI result Body Mass Index 28.1 Const: Other: patient repeatedly groaning in pain. Patient has slightly bizarre affect, poor historian General: cooperative, no acute distress and alert Orientation/consciousness: patient oriented x3 HENMT: Head: Yes normal to inspection Eyes: General: appearance normal, both eyes and all related structures Eyelids: Yes eyelids normal Conjunctivae: conjunctivae normal Pupils: Equal, round and reactive pupils present Neck: Neck: Yes normal visual inspection and Yes supple Chest: Chest palpation & inspection: normal inspection of the chest Resp: Effort & Inspection: normal respiratory effort Auscultation: clear to auscultation bilaterally Cardio: Rate: regular rate Rhythm: regular rhythm Heart sounds: S1 normal heart sound present, S2 normal heart sound present, no gallops, no murmurs and no rubs GI: Palpation (GI): Soft to palpation, nontender and Other GI palpation findings present (Non-distended) Auscultation: normal bowel sounds Back/Spine/Pelvis: Other: tender right upper back and right base of the neck. Skin: General skin exam: no rashes or lesions noted Neuro: General: patient oriented x3, no focal motor deficits and CN's II-XI intact bilaterally Cranial nerves: Yes Equal, round and reactive pupils present Cognition (Neuro): normal cognition Motor exam (neuro): 5/5 motor strength present throughout Sensory Exam: No Sensory deficit (Neuro) Extrem: General: Yes normal to inspection and Yes no pedal edema Psych: Appearance: grossly normal Affect: normal affect MDM - Back Pain/Injury MDM Narrative Medical decision making narrative: patient improved after Toradol, Valium, and oxycodone. Patient was able to lie back and fall asleep. Will start the patient on prednisone as an anti-inflammatory, baclofen for muscle relaxation, and Percocet for pain Discharge Plan Discharge Clinical Impression: Cervical radiculopathy Patient Disposition: Home, Self-Care Instructions: Cervical Radiculopathy (ED) Additional Instructions: Follow-up with the transportation specialist who did your original surgery, or with her primary care physician. Take the medicines as prescribed. Prescriptions: New prednisone 50 mg tablet 50 mg PO DAILY Qty: 5 RF: 0 baclofen 10 mg tablet 10 mg PO QID Qty: 28 RF: 0 oxycodone-acetaminophen [Percocet] 5-325 mg tablet 1 tab PO Q4H PRN (Reason: pain) Qty: 14 RF: 0 No Action vitamin E (dl, acetate) 180 mg (400 unit) capsule 180 mg PO DAILY Qty: 30 RF: 11 tolterodine 4 mg capsule,extended release 24hr 4 mg PO DAILY RF: 0 hydrocortisone [Proctosol HC] 2.5 % cream with perineal applicator 1 appl NM BID Qty: 30 RF: 3
[2021-05-11] MEDS: Ketorolac Tromethamine 30 MG/ML VIAL IM (05:31)
[2021-05-11] MEDS: diazePAM 5 MG TABLET 10 MG PO (05:31)
[2021-05-11] MEDS: oxyCODONE HCl Immed Release 5 MG TABLET PO (05:31)
--- NOTE | 2021-05-11 08:05 | PC.NURSE ---
pt has called for ride three times, this rn called pt brother per request w no answer. pt is ambulatory w slow, guarded gait, alert and oriented w rr even/unlabored. given wheelchair, discharge paperwork, and assisted to waiting room where pt sts will continue to look for ride.
== END 2021-05-11 08:06 | disposition home or self-care (01) ==
PROVIDERS: Emergency Provider Emergency Medicine
DX: M54.12 Radiculopathy, cervical region (principal)
CPT/HCPCS: 90471; 99283; 99284; J1885

== ENCOUNTER → 2021-08-06 12:58 | Outpatient (BNVA) | payer MEDICAID, SELFPAY | DX: N39.41 Urge incontinence (principal); N32.81 Overactive bladder | CPT/HCPCS: 51798; 99202 ==

== ENCOUNTER 2021-10-15 14:30 | Outpatient (REF) | payer MEDICAID, SELFPAY ==
[2021-10-15 16:31] LABS: Alanine Aminotransferase 38 U/L (0-31); Albumin Level 4.1 g/dL (3.5-5.0); Alkaline Phosphatase 79 U/L (39-117); Anion Gap 12 (12-20); Aspartate Amino Transferase 21 U/L (5-31); Bilirubin Total 0.6 mg/dL (0.0-1.0); Blood Urea Nitrogen 10 mg/dL (9-16); Calcium 9.2 mg/dL (8.4-10.2); Carbon Dioxide 22 mmol/L (22-29); Chloride 110 mmol/L (96-108); Estimated Glomerular Filt Rate > 60; Glucose Random 92 mg/dL (60-115); Potassium 4.2 mmol/L (3.3-5.1); Sodium 140 mmol/L (135-145); Total Protein 7.5 g/dL (6.5-8.0)
[2021-10-17 15:06] LABS: Alpha Fetoprotein 2.8 ng/mL
== END 2021-10-15 14:31 | disposition home or self-care (01) ==
LOC: HO.LAB 14:30
PROVIDERS: PCP General Practice; Referring Provider General Practice; Visit Provider Nurse Practitioner
DX: K75.81 Nonalcoholic steatohepatitis (NASH) (principal); R19.5 Other fecal abnormalities
CPT/HCPCS: 36415; 80053; 82105; 99212

== ENCOUNTER 2021-10-22 14:00 | Outpatient (RCR) | payer MEDICAID, SELFPAY | END 2021-11-06 10:23 | disposition home or self-care (01) | LOC: HO.PT 14:00 | PROVIDERS: PCP General Practice; Visit Provider Neurological Surgery | DX: M43.22 Fusion of spine, cervical region (principal) | CPT/HCPCS: 97110; 97162 ==

== ENCOUNTER 2021-10-22 14:57 | Outpatient (REF) | payer MEDICAID, SELFPAY ==
--- NOTE | ~2021-10-22 | MM_ITS ---
EXAMINATION: MM SCREENING DIGITAL BREAST TOMOSYNTHESIS, BILATERAL CLINICAL INFORMATION: Screening. Asymptomatic. The lifetime risk of breast cancer based on the Tyrer-Cuzick Model is 15%. COMPARISON: Mammography: 10/20/2020, 04/23/2019, 04/17/2018 TECHNIQUE: Digital breast tomosynthesis is performed in both the craniocaudal and mediolateral oblique views along with computer-aided detection (CAD). Synthesized 2D images are generated from the tomosynthesis. FINDINGS: There are scattered areas of fibroglandular density (ACR BI-RADS breast composition Category b). There are no significant masses, abnormal calcifications, or other abnormalities. Fibronodular parenchymal pattern is similar to no developing. No architectural abnormality. MM/MM tomosynthesis screening BI IMPRESSION: No mammographic evidence of malignancy. ASSESSMENT: BI-RADS 1: Negative RECOMMENDATION: Routine annual mammography screening. This patient's information was entered into a reminder system with a target due date for their next mammogram.
== END 2021-10-22 14:58 | disposition home or self-care (01) ==
LOC: HO.MAMMO 14:57
PROVIDERS: PCP General Practice; Visit Provider General Practice
DX: Z12.31 Encounter for screening mammogram for malignant neoplasm of breast (principal)
CPT/HCPCS: 77063; 77067

== ENCOUNTER 2021-11-23 16:17 | Outpatient (REF) | payer MEDICAID, SELFPAY ==
--- NOTE | ~2021-11-23 | US_ITS ---
EXAMINATION: US ABDOMEN LIMITED CLINICAL INFORMATION: Nonalcoholic steatohepatitis. COMPARISON: Ultrasound abdomen complete 02/16/2021 and 06/15/2019. TECHNIQUE: Real-time imaging of the right upper quadrant abdominal viscera. FINDINGS: PANCREAS: Normal. LIVER: Enlarged and hyperechoic liver limiting evaluation of small lesions. However, accounting for these limitations, no discrete focal abnormality is identified. GALLBLADDER: Surgically absent. COMMON BILE DUCT: Normal in caliber measuring 0.5 cm in diameter. RIGHT KIDNEY: Normal. No hydronephrosis. No renal calculi or focal parenchymal lesions. The kidney measures 11.9 cm in maximum dimension. FREE FLUID: None. US/US abdomen limited IMPRESSION: Hepatomegaly with increased parenchymal echogenicity most consistent with hepatic steatosis. Steatohepatitis cannot be evaluated by imaging, correlation with liver function tests is recommended.
== END 2021-11-23 16:18 | disposition home or self-care (01) ==
LOC: HO.US 16:17
PROVIDERS: Visit Provider Nurse Practitioner
DX: K75.81 Nonalcoholic steatohepatitis (NASH) (principal)
CPT/HCPCS: 76705

== ENCOUNTER → 2022-04-16 10:16 | Outpatient (BNVA) | payer MEDICAID, SELFPAY | PROVIDERS: PCP General Practice; Visit Provider Orthopaedic Surgery | DX: M65.332 Trigger finger, left middle finger (principal); M65.331 Trigger finger, right middle finger | CPT/HCPCS: 20550; 99212; J1100 ==

== ENCOUNTER 2022-04-16 15:56 | Emergency (ER) | payer MEDICAID, SELFPAY ==
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
[2022-04-16 16:12] VITALS: BMI 27.4
[2022-04-16 16:13] VITALS: BP 128/85; PULSE 91; RESP 18; TEMP 36.6; O2SAT 97
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
[2022-04-16] MEDS: Acetaminophen 325 MG TABLET 650 MG PO (18:47)
[2022-04-16] MEDS: Ketorolac Tromethamine 30 MG/ML VIAL IM (18:48)
[2022-04-16] MEDS: Lidocaine 4 % Patch ADH..PATCH 1 PATCH TRANSDERMA (18:48)
== END 2022-04-16 20:01 | disposition home or self-care (01) ==
PROVIDERS: Emergency Provider Student in an Organized Health Care Education/Training Program; PCP General Practice
DX: S16.1XXA Strain of muscle, fascia and tendon at neck level, initial encounter (principal); S49.92XA Unspecified injury of left shoulder and upper arm, initial encounter; R51.9 Headache, unspecified; M54.2 Cervicalgia; V43.52XA Car driver injured in collision with other type car in traffic accident, initial encounter; Y93.9 Activity, unspecified; Y92.410 Unspecified street and highway as the place of occurrence of the external cause; Y99.9 Unspecified external cause status; Z79.899 Other long term (current) drug therapy
CPT/HCPCS: 70450; 72125; 73030; 96372; 99283; 99284; J1885

== ENCOUNTER → 2022-04-22 10:57 | Outpatient (BNVA) | payer MEDICAID, SELFPAY | PROVIDERS: PCP General Practice; Visit Provider Orthopaedic Surgery | DX: M65.331 Trigger finger, right middle finger (principal) | CPT/HCPCS: 20550; 99212; J1100 ==

== ENCOUNTER → 2022-05-01 13:52 | Outpatient (BNVA) | payer MEDICAID, SELFPAY | PROVIDERS: PCP General Practice; Visit Provider Nurse Practitioner | DX: K75.81 Nonalcoholic steatohepatitis (NASH) (principal); R19.5 Other fecal abnormalities | CPT/HCPCS: 99212 ==

== ENCOUNTER 2022-06-13 15:02 | Outpatient (REF) | payer MEDICAID, SELFPAY ==
--- NOTE | ~2022-06-13 | US_ITS ---
EXAMINATION: US VENOUS ULTRASOUND WITH DOPPLER LOWER EXTREMITY, RIGHT CLINICAL INFORMATION: Right lower extremity edema COMPARISON: Bilateral DVT study 01/13/2020 TECHNIQUE: Ultrasound of the deep veins is performed from the hip to the calf with compression sonography and color and pulse Doppler assessment. Spectral analysis with color-flow imaging is performed. FINDINGS: There is normal venous compression and respiratory variation and augmented flow. The visualized common femoral vein, superficial femoral vein, profunda femoral vein, popliteal vein, and the trifurcation region shows no evidence of deep venous thrombosis. There is no significant popliteal fossa cyst. In the right popliteal fossa there is a hyperechoic mass seen measuring 1.3 x 1.0 x 1.3 cm. If the patient's symptoms persist, followup ultrasound in 5 days 7 days might be of value to exclude proximal propagation from a non-visualized calf vein. US/US venous duplex LE RT IMPRESSION: 1. No DVT demonstrated in the right lower extremity. 2. Hyperechoic mass in the right popliteal fossa. This was not seen on the 01/12/2022 DVT study. If further evaluation needed, MRI would be the exam of choice.
== END 2022-06-13 15:03 | disposition home or self-care (01) ==
LOC: HO.US 15:02
PROVIDERS: Visit Provider General Practice
DX: R22.41 Localized swelling, mass and lump, right lower limb (principal)
CPT/HCPCS: 93971

== ENCOUNTER 2022-07-04 15:51 | Outpatient (REF) | payer MEDICAID, SELFPAY ==
--- NOTE | ~2022-07-04 | MR_ITS ---
EXAMINATION: MR KNEE WITHOUT AND WITH CONTRAST, RIGHT CLINICAL INFORMATION: Right knee swelling. Posterior fossa mass. COMPARISON: Right lower extremity ultrasound dated 06/13/2022. TECHNIQUE: MRI of the knee was performed before and after the intravenous administration of 7.5 mL Gadavist on a high-field scanner. FINDINGS: MENISCI: Medial meniscus: Minimal intrasubstance degenerative signal without articular surface tearing. Lateral meniscus: Intact. LIGAMENTS: Cruciate: Intact. Collateral: Intact. EXTENSOR MECHANISM: Intact. ARTICULAR CARTILAGE/BONE: Patellofemoral compartment: Lateral patellar facet articular cartilage signal heterogeneity with tiny marginal osteophytes. Inferior medial trochlea signal heterogeneity and surface irregularity. Medial compartment: Intact articular cartilage. Lateral compartment: Intact articular cartilage. JOINT FLUID AND BURSAE: Trace Menendez's cyst. Within the soft tissues deep to the overlying skin marker, there is a [id number] lymph node without significant enhancement or concerning features. No additional soft tissue mass, fluid collection, or abnormal enhancement. MR/MR knee RT wo/w con IMPRESSION: 1. Unremarkable lymph node within the region of the overlying skin marker. No soft tissue mass, fluid collection, or abnormal enhancement. 2. Minimal patellofemoral arthrosis. Trace Menendez's cyst. 3. Minimal intrasubstance degenerative signal within the medial meniscus without articular surface tearing.
== END 2022-07-04 15:52 | disposition home or self-care (01) ==
LOC: HO.MRI 15:51
PROVIDERS: Visit Provider General Practice
DX: R22.41 Localized swelling, mass and lump, right lower limb (principal)
CPT/HCPCS: 73723

== ENCOUNTER → 2022-08-08 15:37 | Outpatient (BNVA) | payer MEDICAID, SELFPAY | PROVIDERS: PCP General Practice; Visit Provider Nurse Practitioner Family | DX: N32.81 Overactive bladder (principal) | CPT/HCPCS: 99212 ==

== ENCOUNTER 2022-08-30 15:26 | Outpatient (REF) | payer MEDICAID, SELFPAY ==
--- NOTE | ~2022-08-30 | US_ITS ---
EXAMINATION: US RETROPERITONEAL COMPLETE (RENAL) CLINICAL INFORMATION: Overactive bladder. COMPARISON: Ultrasound abdomen limited dated 11/23/2021. Ultrasound abdomen complete dated 02/16/2021. TECHNIQUE: Real-time imaging of the kidneys and bladder. FINDINGS: RIGHT KIDNEY: 11.4 x 4.2 x 5.7 cm (SAG x AP x TRV). The kidney is normal in size, contour, and echogenicity. Renal cortical thickness is normal. No calculi or focal parenchymal lesions. No hydronephrosis. LEFT KIDNEY: 12.2 x 4.4 x 6.2 cm (SAG x AP x TRV). The kidney is normal in size, contour, and echogenicity. Renal cortical thickness is normal. No calculi or focal parenchymal lesions. No hydronephrosis. BLADDER: Well distended and normal. Bilateral ureteral jets are demonstrated. Prevoid bladder volume is 182 mL. There is no postvoid residual. US/US retroperitoneal comp IMPRESSION: Normal renal and bladder ultrasound.
== END 2022-08-30 15:27 | disposition home or self-care (01) ==
LOC: HO.HMGCX 15:26
PROVIDERS: PCP General Practice; Visit Provider Nurse Practitioner Family
DX: N32.81 Overactive bladder (principal)
CPT/HCPCS: 76770

== ENCOUNTER → 2022-09-06 15:18 | Outpatient (BNVA) | payer MEDICAID, SELFPAY | PROVIDERS: PCP General Practice; Visit Provider Nurse Practitioner Family | DX: N32.81 Overactive bladder (principal) | CPT/HCPCS: 51798; 99212 ==

== ENCOUNTER 2022-09-19 09:43 | Outpatient (REF) | payer MEDICAID, SELFPAY | END 2022-09-19 09:44 | disposition home or self-care (01) | LOC: HO.HOSX 09:43 | PROVIDERS: Visit Provider Physician Assistant | DX: Z13.89 Encounter for screening for other disorder (principal) ==

== ENCOUNTER 2022-11-01 11:35 | Outpatient (REF) | payer MEDICAID, SELFPAY ==
[2022-11-01 12:58] LABS: MANUAL DIFF FLAG NO
[2022-11-01 13:11] LABS: Basophils Absolute Auto 0.1 X10*3/uL (0.0-0.2); Eosinophils Absolute Auto 0.3 X10*3/uL (0.0-0.4); Eosinophils Percent Auto 3.9 % (0-4); Hematocrit 38.7 % (37.0-47.0); Hemoglobin 13.2 g/dl (12.0-16.0); Imm Gran Abs Auto 0.03 X10*3/uL (0.00-0.03); Imm Gran Pct Auto 0.4 % (0.0-0.4); Lymphocytes Absolute Auto 2.4 X10*3/uL (1.2-4.9); Lymphocytes Percent Auto 30.4 % (20-40); Mean Corpuscular HGB Conc 34.1 g/dl (31.0-35.0); Mean Corpuscular Volume 90.8 fL (80.0-98.0); Mean Platelet Volume 11.3 fL (9.4-12.3); Monocytes Absolute Auto 0.5 X10*3/uL (0.1-1.2); Monocytes Percent Auto 5.9 % (2-11); Neutrophils Absolute Auto 4.6 x10*3/uL (2.0-8.3); Neutrophils Percent Auto 58.4 % (45-73); Platelet Count 229 X10*3/uL (160-400); Red Blood Count 4.26 X10*6/uL (4.20-5.50); Red Cell Distribution Width 13.3 % (11.0-16.0); White Blood Count 7.9 X10*3/uL (4.8-10.8)
[2022-11-01 13:32] LABS: Estimated Average Glucose 111 mg/dL; Hemoglobin A1c % 5.5 %
[2022-11-01 14:01] LABS: Appearance Urine Clear; Color Urine Yellow; Glucose Urine UA Negative (Negative); Leukocyte Esterase Urine Negative (Negative); Nitrite Urine Negative (Negative); PH 5.5 (5.0-9.0); Urine Blood Negative (Negative); Urine Ketones Negative (Negative); Urine Protein Negative (Neg-Trace)
[2022-11-01 14:10] LABS: Alanine Aminotransferase 80 U/L (0-31); Albumin Level 4.1 g/dL (3.5-5.0); Alkaline Phosphatase 83 U/L (39-117); Anion Gap 12 (12-20); Aspartate Amino Transferase 38 U/L (5-31); Bilirubin Total 0.7 mg/dL (0.0-1.0); Blood Urea Nitrogen 9 mg/dL (9-16); Calcium 9.3 mg/dL (8.4-10.2); Carbon Dioxide 21 mmol/L (22-29); Chloride 110 mmol/L (96-108); Estimated Glomerular Filt Rate > 60; Glucose Random 147 mg/dL (60-115); Sodium 139 mmol/L (135-145); Total Protein 7.8 g/dL (6.5-8.0)
[2022-11-01 14:24] LABS: TSH reflex Free T4 0.48 uIU/mL (0.32-4.0)
== END 2022-11-01 11:36 | disposition home or self-care (01) ==
LOC: HO.LAB 11:35
PROVIDERS: PCP General Practice; Visit Provider Nurse Practitioner
DX: K75.81 Nonalcoholic steatohepatitis (NASH) (principal); R63.5 Abnormal weight gain; R73.9 Hyperglycemia, unspecified; R19.5 Other fecal abnormalities; D12.6 Benign neoplasm of colon, unspecified
CPT/HCPCS: 36415; 80053; 81003; 82105; 83036; 84443; 85025; 99212

== ENCOUNTER 2022-11-22 11:25 | Outpatient (REF) | payer MEDICAID, SELFPAY ==
--- NOTE | ~2022-11-22 | XR_ITS ---
EXAMINATION: XR KNEE AP STANDING CLINICAL INFORMATION: Pain. COMPARISON: MRI right knee dated 07/04/2022. TECHNIQUE: AP bilateral standing view of the knees was obtained. FINDINGS: No fracture or dislocation. Alignment is anatomic. Joint spaces are maintained. No abnormal soft tissue calcification. XR/XR knee standing BI IMPRESSION: No fracture or dislocation.
--- NOTE | ~2022-11-22 | XR_ITS ---
EXAMINATION: XR KNEE, RIGHT CLINICAL INFORMATION: Knee pain COMPARISON: AP radiographs of both knees standing same day TECHNIQUE: Lateral and sunrise of the right knee. These 2 views were part of the knee radiographs ordered on 11/22/2022. The AP film has been previously dictated. FINDINGS: Some minor degenerative changes are seen with some tiny posterior patellar osteophytes. No other abnormalities seen. XR/XR knee RT 2V IMPRESSION: Minor degenerative changes.
== END 2022-11-22 11:26 | disposition home or self-care (01) ==
LOC: HO.HOSX 11:25
PROVIDERS: Visit Provider Physician Assistant
DX: M23.91 Unspecified internal derangement of right knee (principal)
CPT/HCPCS: 73560; 73565; 99214

== ENCOUNTER 2022-11-22 13:01 | Outpatient (REF) | payer MEDICAID, SELFPAY ==
--- NOTE | ~2022-11-22 | MM_ITS ---
EXAMINATION: MM SCREENING DIGITAL BREAST TOMOSYNTHESIS, BILATERAL CLINICAL INFORMATION: Screening. Asymptomatic. The lifetime risk of breast cancer based on the Tyrer-Cuzick Model is 12.6%. COMPARISON: Mammography: This study is compared with prior exams dating back to 2018. TECHNIQUE: Digital breast tomosynthesis is performed in both the craniocaudal and mediolateral oblique views along with computer-aided detection (CAD). Synthesized 2D images are generated from the tomosynthesis. FINDINGS: There are scattered areas of fibroglandular density (ACR BI-RADS breast composition Category b). There are no significant masses, abnormal calcifications, or other abnormalities. MM/MM tomosynthesis screening BI IMPRESSION: No mammographic evidence of malignancy. ASSESSMENT: BI-RADS BI-RADS 1 - Negative RECOMMENDATION: Routine annual mammography screening. 1 year F/U This examination should not preclude the clinical evaluation of a suspicious palpable abnormality. This patient's information was entered into a reminder system with a target due date for their next mammogram.
== END 2022-11-22 13:02 | disposition home or self-care (01) ==
LOC: HO.MAMMO 13:01
PROVIDERS: PCP General Practice; Visit Provider General Practice
DX: Z12.31 Encounter for screening mammogram for malignant neoplasm of breast (principal)
CPT/HCPCS: 77063; 77067

== ENCOUNTER → 2022-11-22 13:15 | Outpatient (BNV) | payer MEDICAID, SELFPAY | PROVIDERS: PCP General Practice; Visit Provider Radiology Diagnostic Radiology | DX: Z12.31 Encounter for screening mammogram for malignant neoplasm of breast (principal) | CPT/HCPCS: 77063; 77067 ==

== ENCOUNTER 2022-11-22 13:35 | Outpatient (AMB) | payer MEDICAID, SELFPAY ==
--- NOTE | 2022-11-22 13:46 | A.OFFVIS_ITS ---
Intake Intake Visit Reasons: NewProb- RT knee swelling Intake Note: Ramila is a 56 year old female who presents today for a evaluation for her right knee pain. Patient reports off and on pain for 32 years and it has gotten within a year. No hx of injection. No hx of PT. Pain is on both sides of the knee and goes to the back of her knee per patient. Her pain is worse when walking and using the stairs. Allergies Latex Allergy (Unknown, Uncoded 11/01/22 11:43) Hives HPI NewProb- RT knee swelling HPI Details 56-year-old female who presents in the office today for an evaluation of right knee edema. The patient reports intermittent pain for 32 years. She states the pain has increased in the last year, since 2021. She denies a history of cortisone injections and physical therapy. She claims her pain is on the front and back of the right knee that radiates to the back of her knee. She states the pain increases with ambulation and use of stairs. She claims she feels pain in the front of the knee when using the stairs. She believes when she gave to her daughter 32 years ago she has varicose veins and a lump on the right knee. She states the right lower extremity has edema. The patient reports a history of trigger fingers. She states she was already seen by Dr. Estrada for trigger finger surgery. [facility] Medical History Asthma Eczema Hepatic steatosis Internal and external hemorrhoids without complication Overactive bladder Urgency incontinence Varicose veins of right lower extremity with inflammation Surgical History History of colonoscopy Hx of carpal tunnel repair Hx of cholecystectomy Hx of tubal ligation Family History Father No problems noted. Mother Hx of diabetes insipidus Social History (Updated 11/22/22 @ 13:52 by Del Anguiano) Unable to assess alcohol history related to: Unable to respond Alcohol intake: never Patient Tobacco Use Status: Current everyday Tobacco user Current occupational status: disabled Current occupation: rt handed Review of Systems Const All systems reviewed & are unremarkable except as noted in HPI and below Physical Exam Const General: cooperative and no acute distress Orientation/consciousness: patient oriented x3 Resp Effort & Inspection: normal respiratory effort and able to speak in complete sentences Cardio Rate: regular rate Peripheral pulses: Peripheral pulses 2+ throughout GI Palpation (GI): Soft to palpation Skin Lesions: no lesions Rashes: no rashes Neuro General: patient oriented x3 Extrem Other: Right knee: Normal to inspection. No ecchymosis, erythema, or joint effusion. No tenderness to palpation to the medial or lateral joint lines. Full knee extension and flexion. Negative Yon's. Negative anterior draw. NVI. Pain is located along the medial aspect of the right knee. Psych Mental Status: mental status grossly normal Assessment & Plan Assessment & Plan (1) Patellar malalignment syndrome of right knee: Code(s): M23.91 - Unspecified internal derangement of right knee Plan Ms. Santamaria is a 56-year-old female who presents in the office today for an evaluation of right knee edema. The patient reports intermittent pain for 32 years. She states the pain has increased in the last year, since 2021. She denies a history of cortisone injections and physical therapy. She claims her pain is on the front and back of the right knee that radiates to the back of her knee. She states the pain increases with ambulation and use of stairs. She claims she feels pain in the front of the knee when using the stairs. She believes when she gave to her daughter 32 years ago she has varicose veins and a lump on the right knee. She states the right lower extremity has edema. The patient reports a history of trigger fingers. She states she was already seen by Dr. Estrada for trigger finger surgery. I discussed the use of a knee brace. She was given an rehan wrap, off the shelf, while in the office today. She was originally offered a truepull knee brace, but due to it applying pressure to an area identified as a lymph node on the MRI she was placed in the REHAN wrap. I also discussed the role of cortisone injections. She would like to defer at this time due to not having a severe amount of pain. I will place a referral to vascular to further evaluated her veins. Follow up will be PRN, or sooner if needed. The patient will be referred for a preoperative appointment with Dr. Estrada for a trigger finger release, or sooner if needed. X-rays of the right knee which were obtained while in the office today and were reviewed by me, Corina Hernandez PA-C, revealed no acute fractures or dislocation. MRI of the right knee, obtained on 07/04/2022, revealed: 1. Unremarkable lymph node within the region of the overlying skin marker. No soft tissue mass, fluid collection, or abnormal enhancement. 2. Minimal patellofemoral arthrosis. Trace Menendez's cyst. 3. Minimal intrasubstance degenerative signal within the medial meniscus without articular surface tearing. Orders: Orders XR knee RT 2V 11/22/22 M25.569 - Pain in unspecified knee XR knee standing BI 11/22/22 M25.569 - Pain in unspecified knee Referrals Vascular Surgery Referral M25.561 - Pain in right knee Patient Instructions: Scribed for Corina Hernandez PA-C by Karla Givens chief medical physicist, on 11/22/2022 at 1:43 pm, EST. Your attestation Coding Level of Care Code Est Pt Level 4 (29137) Diagnoses Patellar malalignment syndrome of right knee M23.91
== END 2022-11-22 14:57 | disposition home or self-care (01) ==
PROVIDERS: Visit Provider Physician Assistant
DX: M23.91 Unspecified internal derangement of right knee (principal)
CPT/HCPCS: 99214

== ENCOUNTER 2022-12-31 15:44 | Outpatient (AMB) | payer MEDICAID, SELFPAY ==
--- NOTE | 2022-12-31 15:50 | A.OFFVIS_ITS ---
Intake Vital Signs 12/31/22 15:51 Height 5 ft 8 in Weight 191 lb BMI 29.0 Intake Visit Reasons: OV- Lt middle Trigger Finger Wants sx Intake Note: Ramila is a 57 year old right hand dominant female who presents today for a follow up of her left middle trigger finger. Injection was done on 04/22/22, which did not provide adequate relief and she would like to proceed with surgery. Allergies Latex Allergy (Unknown, Uncoded 11/01/22 11:43) Hives HPI OV- Lt middle Trigger Finger Wants sx HPI Details Ramila is a 57 year old woman who presents for a follow-up of her right middle trigger finger. She has a hx of injections for bilateral middle trigger fingers. Her right was injected on 01/08/21 & 04/22/22. Her left middle trigger finger was injected on 04/16/22 She complains of painful locking & catching of the right middle finger. 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 Mother Hx of diabetes insipidus Social History (Updated 11/22/22 @ 13:52 by Del Anguiano) Unable to assess alcohol history related to: Unable to respond Alcohol intake: never Patient Tobacco Use Status: Current everyday Tobacco user Current occupational status: disabled Current occupation: rt handed Review of Systems Const All systems reviewed & are unremarkable except as noted in HPI and below Physical Exam Vital Signs: BMI result Body Mass Index 29.0 Const General: no acute distress and alert Orientation/consciousness: patient oriented x3 Neuro General: patient oriented x3 Extrem Other: Evaluation of Right Upper Extremity: The patient is alert, oriented, and in no acute distress Neuro: Median, Ulnar, Radial nerves motor and sensory intact and sensation is normal to the tips of all digits Vascular: Cap refill brisk ROM: She can make a fist and extend all her digits Visible and palpable locking & catching of the right middle finger Tender over the a1 pepe of the right middle finger Psych Appearance: grossly normal Affect: normal affect Attitude: cooperative Assessment & Plan Assessment & Plan (1) Trigger finger, right middle finger: Code(s): M65.331 - Trigger finger, right middle finger Plan Assessment and plan: 1. Right middle finger trigger finger S/P injections, 04/22/22, 01/08/21 I educated her about this condition I discussed operative and non-operative treatment options The patient would like to proceed with surgery The risks and benefits of operative treatment were discussed with the patient and the patient wishes to proceed with surgery. These risks include, but are not limited to risk of damage to blood vessels, nerves, tendons, infection, recurrence, incomplete relief of preoperative symptoms, persistent pain, possible need for further surgery and the risks associated with regional blocks and anesthesia. The plan is to take the patient to the operating room sometime in the next few weeks for the following procedures: 1. Right middle trigger finger release, under local All of the preoperative paperwork including the consent was filled out today. All the patient's questions were answered. The patient understands that they will be contacted by our computer processing scheduler soon to schedule this procedure. She would like this done on a She denies Diabetes, blood thinners, asthma, heart, lung, kidney issues 2. Left middle finger trigger finger S/P injection on 04/16/2022 Resolved Scribed for Evelyne Estrada MD by Jaun Argueta, medical staff assistant, on 12/31/22 at 4:45 PM, EST. Coding Level of Care Code Est Pt Level 4 (79228) Diagnoses Trigger finger, right middle finger M65.331
[2022-12-31 15:51] VITALS: BMI 29.0
== END 2022-12-31 16:52 | disposition home or self-care (01) ==
PROVIDERS: PCP General Practice; Visit Provider Orthopaedic Surgery
DX: M65.331 Trigger finger, right middle finger (principal)
CPT/HCPCS: 99214

== ENCOUNTER → 2022-12-31 15:44 | Outpatient (BNVA) | payer MEDICAID, SELFPAY | PROVIDERS: PCP General Practice; Visit Provider Orthopaedic Surgery | DX: M65.331 Trigger finger, right middle finger (principal) | CPT/HCPCS: 99212 ==

== ENCOUNTER 2023-02-21 16:19 | Outpatient (REF) | payer MEDICAID, SELFPAY ==
[2023-02-21 17:59] LABS: Alanine Aminotransferase 57 U/L (0-31); Albumin Level 4.2 g/dL (3.5-5.0); Alkaline Phosphatase 89 U/L (39-117); Anion Gap 13 (12-20); Aspartate Amino Transferase 29 U/L (5-31); Bilirubin Total 0.6 mg/dL (0.0-1.0); Blood Urea Nitrogen 8 mg/dL (9-16); Calcium 9.5 mg/dL (8.4-10.2); Carbon Dioxide 23 mmol/L (22-29); Chloride 109 mmol/L (96-108); Estimated Glomerular Filt Rate > 60; Glucose Random 97 mg/dL (60-115); Potassium 3.9 mmol/L (3.3-5.1); Sodium 141 mmol/L (135-145); Total Protein 8.1 g/dL (6.5-8.0)
[2023-02-21 18:10] LABS: TSH reflex Free T4 0.32 uIU/mL (0.32-4.0)
== END 2023-02-21 16:20 | disposition home or self-care (01) ==
LOC: HO.HHCL 16:19
PROVIDERS: Visit Provider General Practice
DX: H57.89 Other specified disorders of eye and adnexa (principal)
CPT/HCPCS: 36415; 80053; 84443

== ENCOUNTER 2023-02-24 15:17 | Outpatient (REF) | payer MEDICAID, SELFPAY | END 2023-02-24 15:18 | disposition home or self-care (01) | LOC: HO.HHCLNP 15:17 | PROVIDERS: Visit Provider General Practice | DX: R10.13 Epigastric pain (principal) | CPT/HCPCS: 87338 ==

== ENCOUNTER 2023-05-22 15:47 | Outpatient (AMB) | payer MEDICAID, SELFPAY ==
--- NOTE | 2023-05-22 15:55 | MHC.OFFVIS ---
Intake Vital Signs 05/22/23 15:56 Height 5 ft 8 in Weight 185 lb BMI 28.1 BP 111/77 Blood Pressure Location Lt brachial Position Sitting Pulse 86 Intake Visit Reasons: 6 month fu Intake Note: Ramila presents in office today in follow up of IBS and labs. CC: She reports doing well and denies having any GI symptoms. Hospital Secretary Required: No Accompanied by: Self / Same As Patient Allergies Latex Allergy (Unknown, Uncoded 11/01/22 11:43) Hives HPI 6 month fu HPI Details Assessment & Plan (1) Loose stools: Code(s): R19.5 - Other fecal abnormalities Plan: She is having a lot of pain r/t her OA problems, worsened because her car is broken down. She is going to see if she can get more injections in her wrists and for trigger finger. The weather is also aggravating her problems. Her eczema is also flaring and she has white spots on arms (APPEARS TO BE VITILIGO). She continues to do well on her Carafate 1 tablet a day. She is agreeable to having some repeat labs with regard to her COLÓN and on discussing how to take care for liver she expresses quite a bit of Angst over her difficulties in losing weight. She is also complaining of urinary frequency and dysuria. She does have a history of hyperglycemia so I think go get some tests her thyroid and see if maybe she is fighting with diabetes. I tell her that I will call her if any of her labs are significantly abnormal but otherwise I will see her in 6 months to go over everything. (2) COLÓN (nonalcoholic steatohepatitis): Comment: 2019 labs: Baseline alpha fetoprotein 3.1, total bilirubin normal, AST/ALT 17/31 with normal alk-phos, ferritin 159, GGT 38, autoimmune workup negative, platelets [id number], fibrosis scoring is F 0, 2020 hepatitis a and C negative she has been immunized against hepatitis-B, HIV is negative, baseline alpha fetoprotein is 4.1 Current Laboratory Tests 10/15/2205/06/22 15:3015:30 Estimated GFR > 60 Total Bilirubin 0.6 AST 21 ALT 38 H Alkaline Phosphatase 79 Alpha Fetoprotein 2.8 ULTRASOUND OF THE ABDOMEN 11/29/21 IMPRESSION: Hepatomegaly with increased parenchymal echogenicity most consistent with hepatic steatosis. ? Steatohepatitis cannot be evaluated by imaging, correlation with liver function tests is recommended. Code(s): K75.81 - Nonalcoholic steatohepatitis (COLÓN) (3) Weight gain: Code(s): R63.5 - Abnormal weight gain (4) Hyperglycemia: Code(s): R73.9 - Hyperglycemia, unspecified (5) Tubular adenoma of colon: Comment: 2019 colonoscopy 2 TA is repeat in 5 years Code(s): D12.6 - Benign neoplasm of colon, unspecified Orders: Orders Alpha Fetoprotein 11/01/22 K75.81 - Nonalcoho lic steatohepatiti s (COLÓN), R63.5 - Abnormal weight ga in, R73.9 - Hyperg lycemia, unspecifi ed Comprehensive Met. Panel 11/01/22 K75.81 - Nonalcoho lic steatohepatiti s (COLÓN), R63.5 - Abnormal weight ga in, R73.9 - Hyperg lycemia, unspecifi ed Hemoglobin A1c 11/01/22 K75.81 - Nonalcoho lic steatohepatiti s (COLÓN), R63.5 - Abnormal weight ga in, R73.9 - Hyperg lycemia, unspecifi ed TSH reflex Free T4 11/01/22 K75.81 - Nonalcoho lic steatohepatiti s (COLÓN), R63.5 - Abnormal weight ga in, R73.9 - Hyperg lycemia, unspecifi ed Complete Blood Cou nt Auto Diff 11/01/22 K75.81 - Nonalcoho lic steatohepatiti s (COLÓN), R63.5 - Abnormal weight ga in, R73.9 - Hyperg lycemia, unspecifi ed UA CC w/rflx Micro + Cult 11/01/22 K75.81 - Nonalcoho lic steatohepatiti s (COLÓN), R63.5 - Abnormal weight ga in, R73.9 - Hyperg lycemia, unspecifi ed Medications: Refilled sucralfate (Carafa te) 2 grams (2 x 1 gra m) PO QNOON 60 tab s 6RF R19.5 - Other feca l abnormalities LABS: Laboratory Tests 11/01/22 12:55 WBC 7.9 Hgb 13.2 Hct 38.7 Plt Count 229 Estimated GFR > 60 Hemoglobin A1c % 5.5 Total Bilirubin 0.7 AST 38 H ALT 80 H Alkaline Phosphata se 83 Alpha Fetoprotein 3.0 TSH 0.48 11/01/22-[address]: Mary Anne Gonzalez ORDERED: Ua Clean Catch QUERIES: Sourc e: Urine, Clean Ca tch Test Result Flag Refere nce Si te Ur Color Yellow Ur Appear C lear P H 5. 5 5.0-9.0 Ur Glu Negati ve Negative mg/d L Urine Blood Negative Negative Spec Gr avity Ur 1.010 1.005-1.025 Urine Pro tein Negative N eg-Trace mg/dL Urine [place] es Negative Neg ative mg/dL Ur Nitrite Negative Negat ava Ur Michael Esterase Negative Negativ e TODAY'S VISIT She continues to have right knee pain, and is supposed to be wearing a brace but needs to call her ortho for a follow up. She is now on 020 20mg bid from her PCP, likely for post jamal gastritis? She did not know why she was on this, except that she has intermittent nausea. She also continues on her carafate qod with good control of her diarrhea. She is having noc polyuria, so we discuss fluid restriction after about 7pm since she goes to be around midnight. She is on tolteradine for OAB. She is having left flank pain that is worse when sitting and not effected by eating or moving her bowels, and it is described as pressure like. She asks me about her mother who had an abnormal finding on a CT in the ER and may need a colonoscopy. I will help facilitate this is she needs but the PCP is at [facility]. ROV 6 mos. Will be due for a colonoscopy in 2024. [facility] Medical History (Updated 05/22/23 @ 16:34 by KARI Platt) Loose stools Colon cancer screening Overactive bladder Eczema Varicose veins of right lower extremity with inflammation Hepatic steatosis Urgency incontinence Asthma Internal and external hemorrhoids without complication Surgical History Hx of carpal tunnel repair Hx of tubal ligation Hx of cholecystectomy History of colonoscopy Family History Father No problems noted. Mother Hx of diabetes insipidus Social History Unable to assess alcohol history related to: Unable to respond Alcohol intake: never Patient Tobacco Use Status: Current everyday Tobacco user Current occupational status: disabled Current occupation: rt handed Review of Systems Const Denies fatigue, Denies fever(s), Denies night sweats, Denies poor appetite and Denies weight loss ENT Reports Normal hearing present, Denies dental pain, Denies dysphagia, Denies hearing loss, Denies mouth pain, Denies odynophagia, Denies throat swelling, Denies tongue swelling and Reports other (Dentition adequate) Card Reports no additional complaints Resp Reports no additional complaints GI Denies abdominal pain, Denies melena, Denies bloating, Denies hematochezia, Denies constipation, Denies GI cramping, Denies dysphagia, Denies excessive flatus, Denies early satiety, Reports heartburn, Reports diarrhea, Reports nausea, Denies odynophagia, Denies vomiting and Denies hematemesis Reports nocturia and Reports flank pain Skin/Breast Denies pruritus, Denies lesions, Denies rash and Denies jaundice Neuro Reports Normal hearing present and Denies Abnormal speech present Endo Denies fatigue Aller/Immun Denies throat swelling and Denies tongue swelling Physical Exam Vital Signs: Last Vital Signs Pulse 86 05/22/23 15:56 BP 111/77 05/22/23 15:56 BMI result Body Mass Index 28.1 Const General: cooperative, no acute distress, well developed and well groomed Nutritional Appearance: well nourished Orientation/consciousness: oriented to person, oriented to place and oriented to time Limitations: No language barrier HEENT Head: Yes normocephalic and Yes atraumatic Eyes General: appearance normal, both eyes and all related structures Pupils: Equal, round and reactive pupils present Neck Neck: Yes normal visual inspection and Yes no lymphadenopathy Thyroid: Thyroid normal Resp Effort & Inspection: normal respiratory effort and able to speak in complete sentences Auscultation: clear to auscultation bilaterally Cardio Rate: regular rate Rhythm: regular rhythm Heart sounds: Normal, physiologic split S2 sound present Peripheral pulses: radial pulses present and posterior tibial pulses present GI Inspection: No distended and No Abdominal panniculus present Palpation (GI): Soft to palpation, nontender, no guarding, not rigid and No hepatosplenomegaly present Percussion: Yes normal to percussion Auscultation: normal bowel sounds Rectal Exam - Female: deferred Skin General skin exam: no rashes or lesions noted, turgor normal, skin not dry, no jaundice, No spider nevi and no striae Rashes: no rashes Nails: normal Neuro General: oriented to person, oriented to place and oriented to time Cranial nerves: Yes Equal, round and reactive pupils present and Yes Normal hearing present Speech: No Abnormal speech present Extrem General: Yes normal to inspection, No clubbing, No cyanosis and No edema Psych Appearance: grossly normal and well kempt Mental Status: mental status grossly normal Speech and movement: Normal speech and movement present Affect: normal affect Attitude: cooperative Thought process: Normal thought process present and not confabulating Thought content: Normal thought content present Insight: Fair insight present (Psych) Judgement: Fair judgement present (Psych) Assessment & Plan Assessment & Plan (1) COLÓN (nonalcoholic steatohepatitis): Comment: 2019 labs: Baseline alpha fetoprotein 3.1, total bilirubin normal, AST/ALT 17/31 with normal alk-phos, ferritin 159, GGT 38, autoimmune workup negative, platelets [id number], fibrosis scoring is F 0, 2020 hepatitis a and C negative she has been immunized against hepatitis-B, HIV is negative, baseline alpha fetoprotein is 4.1 Current Laboratory Tests 10/15/2205/06/22 15:3015:30 Estimated GFR > 60 Total Bilirubin 0.6 AST 21 ALT 38 H Alkaline Phosphatase 79 Alpha Fetoprotein 2.8 ULTRASOUND OF THE ABDOMEN 11/29/21 IMPRESSION: Hepatomegaly with increased parenchymal echogenicity most consistent with hepatic steatosis. ? Steatohepatitis cannot be evaluated by imaging, correlation with liver function tests is recommended. 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 She is now on 020 20mg bid from her PCP, likely for post jamal gastritis? She did not know why she was on this, except that she has intermittent nausea. She also continues on her carafate qod with good control of her diarrhea. She is having noc polyuria, so we discuss fluid restriction after about 7pm since she goes to be around midnight. She is on tolteradine for OAB. She is having left flank pain that is worse when sitting and not effected by eating or moving her bowels, and it is described as pressure like. She asks me about her mother who had an abnormal finding on a CT in the ER and may need a colonoscopy. I will help facilitate this is she needs but the PCP is at [facility]. ROV 6 mos. Will be due for a colonoscopy in 2024. Orders: Orders XR thoracic spine 2V Today M54.6 - Pain in thoracic spine, R10.9 - Unspecified abdominal pain Medications: New omeprazole 20 mg PO BID 60 caps 6RF K91.5 - Postcholecystectomy syndrome Refilled sucralfate (Carafate) 2 grams (2 x 1 gram) PO QNOON 60 tabs 6RF R19.5 - Other fecal abnormalities Coding Level of Care Code Est Pt Level 3 (07575) Diagnoses COLÓN (nonalcoholic steatohepatitis) K75.81 Post-cholecystectomy syndrome K91.5 Hemorrhoids K64.9 Tubular adenoma of colon D12.6 Thoracic back pain M54.6 Left flank pain R10.9
[2023-05-22 15:56] VITALS: BP 111/77; PULSE 86; BMI 28.1
== END 2023-05-22 16:45 | disposition home or self-care (01) ==
PROVIDERS: PCP General Practice; Visit Provider Nurse Practitioner
DX: K75.81 Nonalcoholic steatohepatitis (NASH) (principal); K91.5 Postcholecystectomy syndrome; K64.9 Unspecified hemorrhoids; D12.6 Benign neoplasm of colon, unspecified
CPT/HCPCS: 99213

== ENCOUNTER → 2023-05-22 15:47 | Outpatient (BNVA) | payer MEDICAID, SELFPAY | PROVIDERS: PCP General Practice; Visit Provider Nurse Practitioner | DX: K75.81 Nonalcoholic steatohepatitis (NASH) (principal); K91.5 Postcholecystectomy syndrome; K64.9 Unspecified hemorrhoids; D12.6 Benign neoplasm of colon, unspecified; M54.6 Pain in thoracic spine; R10.9 Unspecified abdominal pain | CPT/HCPCS: 99212 ==

== ENCOUNTER 2023-07-08 21:19 | Emergency (ER) | payer MEDICAID, SELFPAY ==
--- NOTE | ~2023-07-08 | CT_ITS ---
EXAMINATION: CT HEAD WITHOUT CONTRAST CLINICAL INFORMATION: Headache, nausea, double vision COMPARISON: 04/16/2022 TECHNIQUE: Contiguous axial imaging was performed from the skull base to vertex without intravenous administration of contrast. This CT examination was performed using dose optimization techniques as appropriate, variously including the following: *Automated exposure control *Adjustment of mA and/or kV according to patient size (this includes techniques or standardized protocols for targeted exams where dose is matched to indication/reason for exam; i.e. extremities or head) *Use of iterative reconstruction technique DLP: 620 mGy-cm FINDINGS: There is no evidence of acute intracranial hemorrhage or territorial infarction. No abnormal mass-effect or midline shift is seen. Cisse to white matter differentiation is well preserved. No extra-axial fluid collections are identified. The ventricles are normal in size. There is no abnormal attenuation within the brain parenchyma. The osseous structures and soft tissues are normal. The mastoid air cells and visualized portions of the paranasal sinuses are well-aerated. CT/CT head/brain wo IV con IMPRESSION: No acute intracranial pathology.
[2023-07-08 21:41] VITALS: BP 155/83; PULSE 73; RESP 14; TEMP 36.8; O2SAT 96; BMI 28.7
[2023-07-08 22:08] LABS: MANUAL DIFF FLAG NO
[2023-07-08 22:10] LABS: Basophils Absolute Auto 0.1 X10*3/uL (0.0-0.2); Basophils Percent Auto 0.6 % (0-2); Eosinophils Absolute Auto 0.4 X10*3/uL (0.0-0.4); Eosinophils Percent Auto 4.1 % (0-4); Hematocrit 38.8 % (37.0-47.0); Hemoglobin 13.4 g/dl (12.0-16.0); Imm Gran Abs Auto 0.03 X10*3/uL (0.00-0.03); Imm Gran Pct Auto 0.3 % (0.0-0.4); Lymphocytes Absolute Auto 2.6 X10*3/uL (1.2-4.9); Lymphocytes Percent Auto 30.5 % (20-40); Mean Corpuscular HGB Conc 34.5 g/dl (31.0-35.0); Mean Corpuscular Hemoglobin 30.5 pg (27.0-33.0); Mean Corpuscular Volume 88.4 fL (80.0-98.0); Mean Platelet Volume 10.6 fL (9.4-12.3); Monocytes Absolute Auto 0.6 X10*3/uL (0.1-1.2); Monocytes Percent Auto 7.3 % (2-11); Neutrophils Absolute Auto 4.9 x10*3/uL (2.0-8.3); Neutrophils Percent Auto 57.2 % (45-73); Platelet Count 220 X10*3/uL (160-400); Red Blood Count 4.39 X10*6/uL (4.20-5.50); Red Cell Distribution Width 13.1 % (11.0-16.0); White Blood Count 8.6 X10*3/uL (4.8-10.8)
[2023-07-08 22:25] LABS: COVID-19 Test Negative (Negative); IDNOW Serial# 08D9AD1C; IDNOW Serial# 152EDE1D; Influenza A Negative (Negative); Influenza B2 Negative (Negative)
[2023-07-08 22:26] LABS: Alanine Aminotransferase 53 U/L (0-31); Albumin Level 4.1 g/dL (3.5-5.0); Alkaline Phosphatase 93 U/L (39-117); Anion Gap 11 (12-20); Aspartate Amino Transferase 26 U/L (5-31); Bilirubin Total 0.4 mg/dL (0.0-1.0); Blood Urea Nitrogen 8 mg/dL (9-16); Calcium 9.5 mg/dL (8.4-10.2); Carbon Dioxide 23 mmol/L (22-29); Chloride 111 mmol/L (96-108); Creatinine Clr Calc Pharmacy 95.9; Estimated Glomerular Filt Rate > 60; Glucose Random 107 mg/dL (60-115); Lipase 25 U/L (8-78); Potassium 3.5 mmol/L (3.3-5.1); Sodium 141 mmol/L (135-145); Total Protein 8.1 g/dL (6.5-8.0)
--- NOTE | 2023-07-09 00:23 | ED.HA ---
HPI - Headache General Chief Complaint: Headache Stated Complaint: Thyroids Time Seen by Provider: 07/09/23 00:19 Source: patient Mode of arrival: ambulatory Limitations: no limitations History of Present Illness HPI Narrative: 57-year-old female who presents emergency department for evaluation of headache, nausea, swelling beneath her eyes, bilateral eye redness blurred vision and double vision. Patient states that she has had swelling beneath her eyes for months and believes that it is secondary to a problem with her thyroid. She states she did see an ear muff assembler and was treated with Neosporin/polymyxin B/sulfate with dexamethasone with no improvement of the redness of her eyes, she states that her ear muff assembler that the redness is most likely due to her eczema. Patient states that over the past week she has had a headache every morning when she gets up and then it resolves in the afternoon. She states that this morning she had the headache which resolved but then the headache came back this evening. She states that the headache is located in the right side of her head, the headache is a constant, pressure-like pain which is 8/10 at its worst. The headaches associated with nausea but no vomiting. She states the headache associated with blurred vision and double vision. Related Data Home Medications Medication Instructions Recorded Confirmed tolterodine 4 mg capsule,extended 4 mg PO DAILY 03/19/21 04/22/22 release 24 hr ibuprofen 800 mg tablet 800 mg PO Q8H PRN pain 08/06/21 04/22/22 albuterol sulfate 90 mcg/actuation 2 puff inhalation Q6H PRN 05/01/22 aerosol inhaler (ProAir HFA) budesonide-formoterol HFA 80 1 inh inhalation BID 05/01/22 mcg-4.5 mcg/actuation aerosol inhaler (Symbicort) cholecalciferol (vitamin D3) 50 50 mcg PO DAILY 05/01/22 mcg (2,000 unit) capsule fluocinolone 0.01 % scalp oil and 1 ea topical QAM 09/06/22 shower cap diclofenac sodium 1 % topical gel 2 g topical QID 11/22/22 Previous Rx's Medication Instructions Recorded hydrocortisone 2.5 % topical cream 1 appl LA BID hemorrhoids #30 grams 03/19/21 with perineal applicator (Proctosol HC) acetaminophen 500 mg tablet 500 mg PO Q6H PRN fever or pain 04/16/22 (Tylenol Extra Strength) #14 tabs ketorolac 10 mg tablet 10 mg PO TID PRN pain 5 days #15 04/16/22 tabs lidocaine 5 % topical patch 1 patch topical DAILY PRN pain #30 04/16/22 (Lidoderm) ea omeprazole 20 mg capsule,delayed 20 mg PO BID #60 caps 05/22/23 release sucralfate 1 gram tablet (Carafate) 2 g (2 x 1 gram) PO QNOON #60 tabs 05/22/23 prednisone 10 mg tablet 10 mg PO DIRECTED #60 tabs 07/09/23 Allergies Allergy/AdvReac Type Severity Reaction Status Date / Time Latex Allergy Unknown Hives Uncoded 07/08/23 21:41 Review of Systems Review of Systems: Yes all other systems are reviewed and are negative [facility] Past Medical History Attestation statement: The following information was validated with the patient. [facility] Narrative: Past medical history: Kelly, hyperglycemia, GERD. Social history: She denies tobacco, alcohol and drug use Medical History (Updated 07/09/23 @ 03:05 by Collin Gan MD) Loose stools Colon cancer screening Overactive bladder Eczema Varicose veins of right lower extremity with inflammation Hepatic steatosis Urgency incontinence Asthma Internal and external hemorrhoids without complication Surgical History Hx of carpal tunnel repair Hx of tubal ligation Hx of cholecystectomy History of colonoscopy Family History Family History Father No problems noted. Mother Hx of diabetes insipidus Social History Social History Unable to assess alcohol history related to: Unable to respond Alcohol intake: never Patient Tobacco Use Status: Current everyday Tobacco user Smoked in Last 30 Days: Yes Use of substances other than those prescribed or required for medical reasons: No Advance Directives: No Advance Directives Information Provided: No Patient : No Current occupational status: disabled Current occupation: rt handed Physical Exam Vital Signs: Vital Signs: Last Vital Signs Temp 98.6 F 07/09/23 00:36 Pulse 59 07/09/23 00:36 Resp 18 07/09/23 00:36 BP 151/80 H 07/09/23 00:36 Pulse Ox 96 07/09/23 00:36 O2 Del Method Room Air 07/09/23 00:36 BMI result Body Mass Index 28.7 Vital signs revealed an elevated blood pressure otherwise unremarkable Exam General: Awake, alert in no distress Head: Normocephalic, atraumatic , patient has tenderness palpation of her right temporal area but not her left EENT: PERRL, Lids upper and lower lids are swollen,, sclera with bilateral erythematous,, conjunctiva normal, no discharge noted her eyes, extraocular muscles intact with no double vision Neck: Supple, no adenopathy Lung: breath sounds symmetric, no wheezing, rales or rhonchi Chest: symmetric movement, nontender Heart: regular rate and rhythm, normal S1, S2 no murmurs or rubs Abdomen: soft, non-tender, nondistended, normal bowel sounds Back: no vertebral tenderness, no CVAT Extremities: no deformities, moves all extremities symmetrically Skin: Lesions consistent with eczema Neuro: Awake, alert, oriented, normal speech, cranial nerves intact, moves all extremities symmetrically Psych: Pleasant, cooperative Medications Administered Discontinued Medications Generic Name Dose Route Start Last Admin Trade Name Freq PRN Reason Stop Dose Admin Diphenhydramine HCl 50 mg 07/09/23 00:51 07/09/23 01:27 Diphenhydramine Hcl 50 Mg/Ml Vial IVPUSH 07/09/23 00:52 50 mg ONCE STA Administration Sodium Chloride 1,000 mls @ 999 mls/hr 07/09/23 00:51 07/09/23 02:44 Ns IV 07/09/23 01:51 Infused .Q1H1M STA Infusion Ketorolac Tromethamine 15 mg 07/09/23 00:51 07/09/23 01:27 Ketorolac Tromethamine 15 Mg/Ml Vial IVPUSH 07/09/23 00:52 15 mg ONCE STA Administration Metoclopramide HCl 10 mg 07/09/23 00:51 07/09/23 01:27 Metoclopramide Hcl 10 Mg/2 Ml Vial IVPUSH 07/09/23 00:52 10 mg ONCE STA Administration Medical Decision Making Medical Decision Making MDM Narrative: 57-year-old female history of eczema, KELLY, GERD who presents emergency department for evaluation of headache, nausea, swelling beneath her eyes, bilateral eye redness blurred vision and double vision. Patient states that she has had swelling beneath her eyes for months and believes that it is secondary to a problem with her thyroid. She states she did see an ear muff assembler for bilateral redness of her eye and was treated with Neosporin/polymyxin B/sulfate with dexamethasone with no improvement of the redness of her eyes, she states that her ear muff assembler that the redness is most likely due to her eczema. Patient states that over the past week she has had a headache every morning when she gets up and then it resolves in the afternoon. She states that this morning she had the headache which resolved but then the headache came back this evening. She states that the headache is located in the right side of her head, the headache is a constant, pressure-like pain which is 8/10 at its worst. The headaches associated with nausea but no vomiting. She states the headache associated with blurred vision and double vision. Differential diagnosis: ?Includes but is not limited to Eyes: Conjunctivitis, scleritis, thyroid disease Headache: Mass effect, migraine headache, nonspecific headache, giant cell arteritis Patient was initially treated with the following: Normal saline x1 L, Benadryl 50 mg IV, Reglan 10 mg IV and Toradol 15 mg IV Course: 02:47 My interpretation patient's laboratory evaluation is as follows: CBC was normal. ESR was normal at 13. CMP was normal. ALT was elevated 53. Urinalysis and microscopic was negative. Urine tox screen was negative. COVID-19 and influenza were negative. CRP was normal at 0.28. CT scan of the brain was unremarkable. Patient's headache is almost completely resolved after the above treatment. This time I believe the patient's eye symptoms are most likely secondary to flare-up of her eczema. Patient will be treated with prednisone 60 mg once a day for 5 days and then decrease by 10 mg every 2 days. She was prescribed Zofran 4 mg ODT every 6 hours as needed for nausea and vomiting. Patient's TSH and T4 are pending, therefore the patient's care was turned over to my colleague, Dr. Josh Bradley Admission/Observation Consideration of admission/observation: Escalation of care including admission/observation considered Lab Data MDM Lab Attestation statement: I reviewed the patient's lab results. 07/08/23 22:07/08/23 22:04 Labs: Lab Results 07/08/23 07/09/23 07/09/23 Range/Units 22:04 00:33 01:31 WBC 8.6 (4.8-10.8) X10*3/uL RBC 4.39 (4.20-5.50) X10*6/uL Hgb 13.4 (12.0-16.0) g/dl Hct 38.8 (37.0-47.0) % MCV 88.4 (80.0-98.0) fL MCH 30.5 (27.0-33.0) pg MCHC 34.5 (31.0-35.0) g/dl RDW 13.1 (11.0-16.0) % Plt Count 220 (160-400) X10*3/uL MPV 10.6 (9.4-12.3) fL Immature Gran % (Auto) 0.3 (0.0-0.4) % Neut % (Auto) 57.2 (45-73) % Lymph % (Auto) 30.5 (20-40) % [place] % (Auto) 7.3 (2-11) % Eos % (Auto) 4.1 H (0-4) % Baso % (Auto) 0.6 (0-2) % Lymph # (Auto) 2.6 (1.2-4.9) X10*3/uL [place] # (Auto) 0.6 (0.1-1.2) X10*3/uL Eos # (Auto) 0.4 (0.0-0.4) X10*3/uL Baso # (Auto) 0.1 (0.0-0.2) X10*3/uL Abs Immat Gran (auto) 0.03 (0.00-0.03) X10*3/uL Absolute Neuts (auto) 4.9 (2.0-8.3) x10*3/uL Absolute Nucleated RBC 0.000 (0.0-0.012) X10*3/uL Nucleated RBC % (auto) 0.0 (0.0-0.2) /100WBC ESR 13 (0-20) MM/HR Sodium 141 (135-145) mmol/L Potassium 3.5 (3.3-5.1) mmol/L Chloride 111 H (96-108) mmol/L Carbon Dioxide 23 (22-29) mmol/L Anion Gap 11 L (12-20) BUN 8 L (9-16) mg/dL Creatinine 0.76 (0.5-1.4) mg/dL Estim Creat Clear Calc 95.9 Estimated GFR > 60 Random Glucose 107 (60-115) mg/dL Calcium 9.5 (8.4-10.2) mg/dL Total Bilirubin 0.4 (0.0-1.0) mg/dL AST 26 (5-31) U/L ALT 53 H (0-31) U/L Alkaline Phosphatase 93 (39-117) U/L C-Reactive Protein 0.28 (< or = 0.50) mg/dL Total Protein 8.1 H (6.5-8.0) g/dL Albumin 4.1 (3.5-5.0) g/dL Lipase 25 (8-78) U/L Urine Color Yellow Urine Appearance Clear Urine pH 6.0 (5.0-9.0) Ur Specific [place] 1.015 (1.005-1.025) Urine Protein Negative (Neg-Trace) mg/dL Urine Glucose (UA) Negative (Negative) mg/dL Urine Ketones Negative (Negative) mg/dL Urine Blood Negative (Negative) Urine Nitrite Negative (Negative) Ur Leukocyte Esterase Negative (Negative) Urine RBC 0-2 (0-2) /HPF Urine WBC 0-5 (0-5) /HPF Ur Squamous Epith Cells 0-2 (0-2) /HPF Urine Bacteria None Seen (None Seen) Hyaline Casts 0-2 (0-2) /LPF Urine Opiates Screen Not Detected (Not Detect) Urine Fentanyl Screen Not Detected (Not Detect) Ur Barbiturates Screen Not Detected (Not Detect) Ur Phencyclidine Scrn Not Detected (Not Detect) Ur Amphetamines Screen Not Detected (Not Detect) U Benzodiazepines Scrn Not Detected (Not Detect) Urine Cocaine Screen Not Detected (Not Detect) U Marijuana (THC) Screen Not Detected (Not Detect) COVID-19 (RADHA) Negative (Negative) COVID-19 Clin Com See Note Influenza Type A (KOBE) Negative (Negative) Influenza Type B (KOBE) Negative (Negative) Influenza A & B Note See Note Radiology Impression Discussion of test interpretation with radiology: I have reviewed the radiologist's reading. Radiologist Impression: CT head/brain wo IV con IMPRESSION: No acute intracranial pathology. Dictated By: Clark Stephen MD Discharge Plan Discharge Clinical Impression: Headache, migraine, Eczema of eyelid, left, Eczema of eyelid, right Patient Disposition: Still a Patient Instructions: Migraine Headache (ED) Additional Instructions: Your blood work was unremarkable. Your inflammatory markers were normal which is reassuring. The CT scan of your brain revealed no abnormalities to explain your headache which is also reassuring. The inflammation of your eyes and your eyelids are consistent with a flare-up of your eczema. Take prednisone 10 mg pills, sick pills once a day for 5 days then decrease by 1 pill every 2 days until you complete the prescription. While you ?are taking prednisone, do not take any NSAIDs (Motrin, Advil, ibuprofen, Aleve, naproxen). Apply triple antibiotic ointment to your eyelid twice a day for 2 weeks Take Tylenol (acetaminophen) 500 mg pills, 2 pills every 6 hours as needed for pain or fever. Follow-up with your doctor in 2 days. Please return to the emergency department if your symptoms get worse or if you develop any symptoms that are concerning to you. Prescriptions: New prednisone 10 mg tablet 10 mg PO DIRECTED Qty: 60 0RF Rx Instructions: Day 1 through 5 take 6 pills then decrease by 1 pill every 2 days until you complete prescription No Action acetaminophen [Tylenol Extra Strength] 500 mg tablet 500 mg PO Q6H PRN (Reason: fever or pain) Qty: 14 0RF ketorolac 10 mg tablet 10 mg PO TID PRN (Reason: pain) 5 Days Qty: 15 0RF lidocaine [Lidoderm] 5 % adhesive patch,medicated 1 patch topical DAILY MDD remove after 12 hours PRN (Reason: pain) Qty: 30 0RF Rx Instructions: leave on most painful area for up to 12 hrs tolterodine 4 mg capsule,extended release 24hr 4 mg PO DAILY hydrocortisone [Proctosol HC] 2.5 % cream with perineal applicator 1 appl LA BID Qty: 30 3RF ibuprofen 800 mg tablet 800 mg PO Q8H PRN (Reason: pain) albuterol sulfate [ProAir HFA] 90 mcg/actuation HFA aerosol inhaler 2 puff inhalation Q6H PRN budesonide-formoterol [Symbicort] 80-4.5 mcg/actuation HFA aerosol inhaler 1 inh inhalation BID cholecalciferol (vitamin D3) 50 mcg (2,000 unit) capsule 50 mcg PO DAILY diclofenac sodium 1 % gel 2 g topical QID Rx Instructions: apply to single elbow, wrist or hand; for hand includes palm/fingers/back of hand fluocinolone and shower cap 0.01 % oil 1 ea topical QAM omeprazole 20 mg capsule,delayed release(DR/EC) 20 mg PO BID Qty: 60 6RF sucralfate [Carafate] 1 gram tablet 2 g PO QNOON Qty: 60 6RF
[2023-07-09 00:36] VITALS: BP 151/80; PULSE 59; RESP 18; TEMP 37; O2SAT 96
[2023-07-09 00:41] LABS: Appearance Urine Clear; Color Urine Yellow; Glucose Urine UA Negative (Negative); Leukocyte Esterase Urine Negative (Negative); Nitrite Urine Negative (Negative); Specific Gravity - Urine 1.015 (1.005-1.025); Urine Blood Negative (Negative); Urine Ketones Negative (Negative); Urine Protein Negative (Neg-Trace)
--- NOTE | 2023-07-09 00:42 | PC.NURSE ---
this rn assumed care of pt. pt a&ox4, respirations even and unlabored. pt reporting since the summer pt has had bilateral eye swelling, redness, double vision and blurriness. pt reports being prescribed steroids which did not provider relief. pt reports one week of headache that subsides with ibuprofen. pt noted to have bilateral equal hands grasps, equal pupils, bilateral equal leg raises. pt denies chest pain. reports nausea but denies diarrhea and vomiting. at bedside.
[2023-07-09 00:43] LABS: Bacteria Urine None Seen (None Seen); Hyaline Casts Urine 0-2 /LPF (0-2); RBC Urine 0-2 /HPF (0-2); Squamous Epithelial Cell Urine 0-2 /HPF (0-2); WBC Urine 0-5 /HPF (0-5)
[2023-07-09 00:47] LABS: Amphetamine Screen Urine Not Detected (Not Detect); Barbiturates, Urine Not Detected (Not Detect); Benzodiazepines Screen Urine Not Detected (Not Detect); Cannabinoid Screen Urine Not Detected (Not Detect); Cocaine Screen Urine Not Detected (Not Detect); Fentanyl, urine Not Detected (Not Detect); Opiate Screen Urine Not Detected (Not Detect); Phencyclidine Screen Urine Not Detected (Not Detect)
--- NOTE | 2023-07-09 01:07 | PC.NURSE ---
pt to CT at this time.
[2023-07-09 01:19] LABS: C Reactive Protein 0.28 mg/dL (< or = 0.50)
[2023-07-09] MEDS: 0.9 % Sodium Chloride 1,000 ML 999 ML IV (01:27)
[2023-07-09] MEDS: diphenhydrAMINE HCL 50 MG/ML VIAL IVPUSH (01:27)
[2023-07-09] MEDS: Metoclopramide HCl 10 MG/2 ML VIAL IVPUSH (01:27)
[2023-07-09] MEDS: Ketorolac Tromethamine 15 MG/ML VIAL IVPUSH (01:27)
--- NOTE | 2023-07-09 01:39 | PC.NURSE ---
20G placed in right forearm, pt medicated per jul. lights dimmed.
[2023-07-09 02:16] LABS: Erythrocyte Sedimentation Rate 13 MM/HR (0-20)
[2023-07-09 03:30] LABS: TSH reflex Free T4 0.52 uIU/mL (0.32-4.0)
[2023-07-09 04:03] VITALS: BP 132/58; PULSE 58; RESP 16; TEMP 36.6; O2SAT 96
== END 2023-07-09 04:10 | disposition home or self-care (01) ==
PROVIDERS: Emergency Provider Emergency Medicine Emergency Medical Services; PCP General Practice
DX: G43.909 Migraine, unspecified, not intractable, without status migrainosus (principal); L30.9 Dermatitis, unspecified; Z11.52 Encounter for screening for COVID-19
CPT/HCPCS: 70450; 80053; 80307; 81001; 83690; 84443; 85025; 85652; 86140; 87502; 87635; 96361; 96374; 96375; 99284; 99285; J1200; J1885; J2765

== ENCOUNTER 2023-09-08 15:28 | Outpatient (AMB) | payer MEDICAID, SELFPAY ==
--- NOTE | 2023-09-08 15:45 | A.OFFVIS_ITS ---
Intake Visit Reasons: 1y/PVR Intake Note: Patient is present for follow up ultrasound/OAB Urology Medications: tolterodine Blood Thinner: none PVR: 0ml's Mobile Application Engineer Required: No Accompanied by: Self / Same As Patient Allergies Latex Allergy (Unknown, Uncoded 09/08/23 20:12) Hives Medication List - Last Reconciled 09/08/23 by CARLOS Spencer-ANABELLA acetaminophen (Tylenol Extra Strength) 500 mg PO Q6H PRN albuterol sulfate 90 mcg/actuation (ProAir HFA) 2 puffs inhalation Q6H PRN budesonide-formoterol 80-4.5 mcg/actuation (Symbicort) 1 inh inhalation BID cholecalciferol (vitamin D3) 50 mcg PO DAILY diclofenac sodium 1% 2 grams topical QID fluocinolone and shower cap 0.01 % 1 ea topical QAM hydrocortisone 2.5% (Proctosol HC) 1 appl ID BID ibuprofen 800 mg PO Q8H PRN ketorolac 10 mg PO TID PRN 5 days lidocaine 5% (Lidoderm) 1 patch topical DAILY PRN MDD remove after 12 hours omeprazole 20 mg PO BID sucralfate (Carafate) 2 grams (2 x 1 gram) PO QNOON tolterodine ER 4 mg PO DAILY HPI Comments Details: Lydia is a pleasant 57-year-old female patient of Dr. Davila. She has a past medical history of eczema, hepatic steatosis, asthma, internal and external hemorrhoids, overactive bladder, and urgency incontinence. She presents to the office today for follow-up of her overactive bladder and urinary incontinence. In discussion with the patient today she reports to be doing and feeling well. She reports since her last office visit here she has had no urinary issues or concerns. She reports compliance with tolterodine as prescribed. She does feel this has been extremely helpful. She discusses feeling the more she is active in her health she has been feeling well. Previous workup has included a retroperitoneal ultrasound noting bilateral kidneys with no calculi, lesions, or hydronephrosis noted. The bladder is well distended and normal. Bilateral ureteral jets are demonstrated. Pre void bladder volume is 182 mL. There is no postvoid residual. Normal renal and bladder ultrasound. She denies having any episodes of urinary incontinence or urinary issues or concerns at this time. Unable to obtain urine for urinalysis as patient is unable to void however PVR 0 mL. When asked patient denies urinary urgency, urinary frequency, incontinence, nocturia, hematuria, dysuria, foul smelling urine, changes to urinary stream, flank pain, fever, and or chills. When asked she does report to be drinking adequate amount of fluid daily. When asked patient offers no concerns or complaints at this time. [facility] Medical History Loose stools Colon cancer screening Overactive bladder Eczema Varicose veins of right lower extremity with inflammation Hepatic steatosis Urgency incontinence Asthma Internal and external hemorrhoids without complication Surgical History Hx of carpal tunnel repair Hx of tubal ligation Hx of cholecystectomy History of colonoscopy Family History Father No problems noted. Mother Hx of diabetes insipidus Social History Unable to assess alcohol history related to: Unable to respond Alcohol intake: never Patient Tobacco Use Status: Current everyday Tobacco user Current occupational status: disabled Current occupation: rt handed Review of Systems Const Reports no additional complaints Eyes Reports no additional complaints ENT Reports no additional complaints Card Reports no additional complaints Resp Reports as per HPI GI Reports as per HPI Reports as per HPI Musc Reports no additional complaints Skin/Breast Reports as per HPI Neuro Reports no additional complaints Psych Reports no additional complaints Endo Reports no additional complaints Rusty/Lymph Reports no additional complaints Aller/Immun Reports no additional complaints Physical Exam Const General: cooperative, healthy appearing, comfortable, no acute distress, well developed, alert and awake Orientation/consciousness: patient oriented x3 Limitations: no limitations HEENT Head: Yes normal to inspection, Yes normocephalic and Yes atraumatic Ears: hearing grossly normal bilaterally Eyes General: appearance normal, both eyes and all related structures Neck Neck: Yes normal visual inspection and Yes trachea midline Chest Chest palpation & inspection: normal inspection of the chest Resp Effort & Inspection: normal respiratory effort and able to speak in complete sentences Cardio Rate: regular rate GI Inspection: Yes normal to inspection General: Yes no CVA tenderness Back/Spine/Pelvis Back: no CVA tenderness Skin General skin exam: no rashes or lesions noted Neuro General: patient oriented x3 Extrem General: Yes normal to inspection Psych Appearance: grossly normal and well kempt Mental Status: mental status grossly normal Speech and movement: Normal speech and movement present and Clear speech present Affect: normal affect Attitude: cooperative Thought process: Normal thought process present Thought content: Normal thought content present Insight: Fair insight present (Psych) Judgement: Fair judgement present (Psych) Office Procedures Post Void Residual Post Residual Void Post Void Residual (PVR): 0 [id number] Void Residual by ultrasound Assessment & Plan Assessment & Plan (1) Overactive bladder: Code(s): N32.81 - Overactive bladder Category: Medical Plan Unable to obtain urine for urinalysis as patient unable to void however PVR 0 mL. Continue Tolterodine; as patient reports this to be working well for her. Patient currently denies any bothersome urinary issues or concerns. Patient reports be happy with current voiding parameters on tolterodine as prescribed. Discussed at length importance of limiting caffeine as well as cigarettes for improvement in urinary symptoms as well as overall health and well-being. Follow-up in 1 year; if not sooner with any questions, concerns, and or issues. Orders: Orders AMB Post Void Residual by ultrasound Today N32.81 - Overactive bladder Patient Instructions: The patient had an opportunity to ask questions regarding the treatment plan. All questions were answered. Physical exam, labs, and imaging were discussed and reviewed in detail. As well as risks, benefits, and discussion of treatment choices. No major barriers to understanding were identified. The patient expressed understanding and agreement with the above treatment plan. The patient was made aware they should contact our office by phone for worsening of their current condition, the appearance of new symptoms, or with any questions or concerns. Compliance is encouraged with any medications and follow up testing that is ordered. It is a privilege to be allowed the opportunity to participate in? your urological care.? Again, if you have any questions or concerns If you have any questions or concerns please do not hesitate to contact me. The office is [phone]. This note is constructed using voice recognition software. While every effort has been made to ensure accuracy laborer salvage errors may have been included. Yours sincerely, NEEL Spencer Coding Level of Care Code Est Pt Level 3 (67016) Diagnoses Overactive bladder N32.81 CPT Codes Post Residual Void - PVR CPT Code: 21204-Xrph Void Residual by ultrasound ([id number])
== END 2023-09-08 16:13 | disposition home or self-care (01) ==
PROVIDERS: Visit Provider Nurse Practitioner Family
DX: N32.81 Overactive bladder (principal)
CPT/HCPCS: 99213

== ENCOUNTER → 2023-09-08 15:28 | Outpatient (BNVA) | payer MEDICAID, SELFPAY | PROVIDERS: Visit Provider Nurse Practitioner Family | DX: N32.81 Overactive bladder (principal); R32 Unspecified urinary incontinence | CPT/HCPCS: 51798; 99212 ==

== ENCOUNTER 2023-12-01 14:53 | Outpatient (REF) | payer MEDICAID, SELFPAY ==
--- NOTE | ~2023-12-01 | XR_ITS ---
EXAMINATION: XR THORACIC SPINE CLINICAL INFORMATION: Pain COMPARISON: None available. TECHNIQUE: 3 views of the thoracic spine were obtained. FINDINGS: Normal alignment of the thoracic spine. Thoracic vertebral body heights are maintained. Thoracic disc spaces are well-maintained diffusely. A few tiny osteophytes are scattered throughout the thoracic spine. Suboptimally visualized postsurgical changes of the lower cervical spine. Cardiac silhouette is normal in size. Lung parenchyma is well aerated. Surgical clips in the right upper abdomen consistent with prior cholecystectomy. XR/XR thoracic spine 2V IMPRESSION: Minimal degenerative changes of the thoracic spine.
== END 2023-12-01 14:54 | disposition home or self-care (01) ==
LOC: HO.XRAY 14:53
PROVIDERS: PCP General Practice; Visit Provider Nurse Practitioner
DX: M54.9 Dorsalgia, unspecified (principal); R10.9 Unspecified abdominal pain
CPT/HCPCS: 72070

== ENCOUNTER 2023-12-03 15:41 | Outpatient (REF) | payer MEDICAID, SELFPAY ==
[2023-12-03 19:02] LABS: Estimated Average Glucose 120 mg/dL; Hemoglobin A1C 149.2484 umol/L; Hemoglobin A1c % 5.8 % (<6.0)
[2023-12-03 19:09] LABS: Alanine Aminotransferase 64 U/L (0-31); Albumin Level 4.2 g/dL (3.5-5.0); Alkaline Phosphatase 93 U/L (39-117); Anion Gap 13 (12-20); Aspartate Amino Transferase 34 U/L (5-31); Bilirubin Total 0.6 mg/dL (0.0-1.0); Blood Urea Nitrogen 8 mg/dL (9-16); Calcium 9.3 mg/dL (8.4-10.2); Carbon Dioxide 22 mmol/L (22-29); Chloride 109 mmol/L (96-108); Estimated Glomerular Filt Rate > 60; Glucose Random 116 mg/dL (60-115); Sodium 140 mmol/L (135-145); Total Protein 7.7 g/dL (6.5-8.0)
[2023-12-03 19:27] LABS: TSH reflex Free T4 0.52 uIU/mL (0.32-4.0)
== END 2023-12-03 15:42 | disposition home or self-care (01) ==
LOC: HO.HHCL 15:41
PROVIDERS: Visit Provider General Practice
DX: E66.3 Overweight (principal)
CPT/HCPCS: 36415; 80053; 83036; 84443

== ENCOUNTER 2023-12-04 14:40 | Outpatient (AMB) | payer MEDICAID, SELFPAY ==
--- NOTE | 2023-12-04 14:42 | A.OFFVIS_ITS ---
Vital Signs 12/04/23 14:44 Height 5 ft 8 in Weight 190 lb BMI 28.9 BP 128/80 Blood Pressure Location Rt brachial Position Sitting Pulse 100 Pulse Source Pulse Oximeter Pulse Oximetry (%) 96 Oxygen Delivery Method Room Air Comment Pt reported weight Intake Visit Reasons: 6 months follow up Intake Note: Ramila presents in office today for a scheduled 6 mos FUV. CC; Pt reports that they are remaining stable since their last visit. Pt denies any new sx at this time. Pt did want to discuss their current medications as they were concerned regard ing some of the potential side effects. Pharmacy Scheduler Required: No Allergies latex Allergy (Intermediate, Verified 12/04/23 14:43) Hives HPI HPI 6 months follow up: Details: Assessment & Plan (1) COLÓN (nonalcoholic steatohepatitis): Comment: 2019 labs: Baseline alpha fetoprotein 3.1, total bilirubin normal, AST/ALT 17/31 with normal alk-phos, ferritin 159, GGT 38, autoimmune workup negative, platelets [id number], fibrosis scoring is F 0, 2020 hepatitis a and C negative she has been immunized against hepatitis-B, HIV is negative, baseline alpha fetoprotein is 4.1 Current Laboratory Tests 10/15/2205/06/22 15:3015:30 Estimated GFR > 60 Total Bilirubin 0.6 AST 21 ALT 38 H Alkaline Phosphatase 79 Alpha Fetoprotein 2.8 ULTRASOUND OF THE ABDOMEN 11/29/21 IMPRESSION: Hepatomegaly with increased parenchymal echogenicity most consistent with hepatic steatosis. ? Steatohepatitis cannot be evaluated by imaging, correlation with liver function tests is recommended. 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 She is now on 020 20mg bid from her PCP, likely for post jamal gastritis? She did not know why she was on this, except that she has intermittent nausea. She also continues on her carafate qod with good control of her diarrhea. She is having noc polyuria, so we discuss fluid restriction after about 7pm since she goes to be around midnight. She is on tolteradine for OAB. She is having left flank pain that is worse when sitting and not effected by eating or moving her bowels, and it is described as pressure like. She asks me about her mother who had an abnormal finding on a CT in the ER and may need a colonoscopy. I will help facilitate this is she needs but the PCP is at [facility]. ROV 6 mos. Will be due for a colonoscopy in 2024. Orders: Orders XR thoracic spine 2V Today M54.6 - Pain in thoracic spine, R10.9 - Unspecified abdominal pain Medications: New omeprazole 20 mg PO BID 60 caps 6RF K91.5 - Postcholecystectomy syndrome Refilled sucralfate (Carafate) 2 grams (2 x 1 gram) PO QNOON 60 tabs 6RF R19.5 - Other fecal abnormalities X-RAY OF THE THORACIC SPINE Not read at the time of the patient's visit] TODAY'S VISIT She has a LOT going on, her mother is in a rehab facility now s/p pneumonia...but they will not bring her for her procedures and she is not eating and keeps saying her stomach is hurting. She is now on 020 20mg bid from her PCP, likely for post jamal gastritis? She did not know why she was on this, except that she has intermittent nausea. She also continues on her carafate qod with good control of her diarrhea. The thoracic x-ray is not yet read so I can not give her much insight into her left flank pain. (from last note: She is having left flank pain that is worse when sitting and not effected by eating or moving her bowels, and it is described as pressure like. ) SHe is worrried about the possibility of memory loss on omeprazole. I explain that this was found only in 1 small study in [facility] and has not been reporduced and certainly not borne out in care home prospective studies. This is mary true at her low doses. ROV 6 mos. PFSH Medical History Loose stools Colon cancer screening Overactive bladder Eczema Varicose veins of right lower extremity with inflammation Hepatic steatosis Urgency incontinence Asthma Internal and external hemorrhoids without complication Surgical History Hx of carpal tunnel repair Hx of tubal ligation Hx of cholecystectomy History of colonoscopy Family History Father No problems noted. Mother Hx of diabetes insipidus Social History Unable to assess alcohol history related to: Unable to respond Alcohol intake: never Patient Tobacco Use Status: Current everyday Tobacco user Current occupational status: disabled Current occupation: rt handed Review of Systems Const Denies fatigue, Denies fever(s), Denies night sweats, Denies poor appetite and Denies weight loss ENT Reports Normal hearing present, Denies dental pain, Denies dysphagia, Denies hearing loss, Denies mouth pain, Denies odynophagia, Denies throat swelling, Denies tongue swelling and Reports other (Dentition adequate) Card Reports no additional complaints Resp Reports no additional complaints GI Details: Denies abdominal pain, Denies melena, Denies bloating, Denies hematochezia, Denies constipation, Denies GI cramping, Denies dysphagia, Denies excessive flatus, Denies early satiety, Reports heartburn, Reports diarrhea, Denies nausea, Denies odynophagia, Denies vomiting and Denies hematemesis Skin/Breast Denies pruritus, Denies lesions, Denies rash and Denies jaundice Neuro Reports Normal hearing present and Denies Abnormal speech present Endo Denies fatigue Aller/Immun Denies throat swelling and Denies tongue swelling Physical Exam Vital Signs: Last Vital Signs Pulse 100 12/04/23 14:44 BP 128/80 12/04/23 14:44 Pulse Ox 96 12/04/23 14:44 Oxygen Delivery Method Room Air 12/04/23 14:44 BMI result Body Mass Index 28.9 Const General: cooperative, no acute distress, well developed and well groomed Nutritional Appearance: average body habitus and well nourished Orientation/consciousness: oriented to person, oriented to place and oriented to time Limitations: No language barrier HEENT Head: Yes normocephalic and Yes atraumatic Eyes General: appearance normal, both eyes and all related structures Pupils: Equal, round and reactive pupils present Neck Neck: Yes normal visual inspection and Yes no lymphadenopathy Thyroid: Thyroid normal Resp Effort & Inspection: normal respiratory effort and able to speak in complete sentences Auscultation: clear to auscultation bilaterally Cardio Rate: regular rate Rhythm: regular rhythm Heart sounds: Normal, physiologic split S2 sound present Peripheral pulses: radial pulses present and posterior tibial pulses present GI Inspection: No distended, No Abdominal panniculus present and Yes obesity Palpation (GI): Soft to palpation, nontender, no guarding, not rigid and No hepatosplenomegaly present Percussion: Yes normal to percussion Auscultation: normal bowel sounds Rectal Exam - Female: deferred Skin General skin exam: no rashes or lesions noted, turgor normal, skin not dry, no jaundice, No spider nevi and no striae Rashes: no rashes Nails: normal Neuro General: oriented to person, oriented to place and oriented to time Cranial nerves: Yes Equal, round and reactive pupils present and Yes Normal hearing present Speech: No Abnormal speech present Extrem General: Yes normal to inspection, No clubbing, No cyanosis and No edema Psych Appearance: grossly normal and well kempt Mental Status: mental status grossly normal Speech and movement: Normal speech and movement present Affect: normal affect Attitude: cooperative Thought process: Normal thought process present and not confabulating Thought content: Normal thought content present Insight: Limited insight present (Psych) Judgement: Limited judgement present (Psych) Assessment & Plan Assessment & Plan (1) Post-cholecystectomy syndrome: Code(s): K91.5 - Postcholecystectomy syndrome Category: Medical (2) Tubular adenoma of colon: Comment: 2019 colonoscopy 2 TA is repeat in 5 years Code(s): D12.6 - Benign neoplasm of colon, unspecified Category: Medical (3) GERD (gastroesophageal reflux disease): Code(s): K21.9 - Gastro-esophageal reflux disease without esophagitis Category: Medical Plan She has a LOT going on, her mother is in a rehab facility now s/p pneumonia...but they will not bring her for her procedures and she is not eating and keeps saying her stomach is hurting. She is now on 020 20mg bid from her PCP, likely for post jamal gastritis? She did not know why she was on this, except that she has intermittent nausea. She also continues on her carafate qod with good control of her diarrhea. The thoracic x-ray is not yet read so I can not give her much insight into her left flank pain. (from last note: She is having left flank pain that is worse when sitting and not effected by eating or moving her bowels, and it is described as pressure like. ) SHe is worrried about the possibility of memory loss on omeprazole. I explain that this was found only in 1 small study in [facility] and has not been reporduced and certainly not borne out in [facility] [employer] prospective studies. This is mary true at her low doses. ROV 6 mos. X-RAY OF THE THORACIC SPINE Not read at the time of the patient's visit] Coding Level of Care Code Est Pt Level 3 (81975) Diagnoses Post-cholecystectomy syndrome K91.5 Tubular adenoma of colon D12.6 GERD (gastroesophageal reflux disease) K21.9
[2023-12-04 14:44] VITALS: BP 128/80; PULSE 100; O2SAT 96; BMI 28.9
== END 2023-12-04 15:20 | disposition home or self-care (01) ==
LOC: HO.HGI 14:40
PROVIDERS: PCP General Practice; Visit Provider Nurse Practitioner
DX: K91.5 Postcholecystectomy syndrome (principal); D12.6 Benign neoplasm of colon, unspecified; K21.9 Gastro-esophageal reflux disease without esophagitis
CPT/HCPCS: 99213

== ENCOUNTER → 2023-12-04 14:40 | Outpatient (BNVA) | payer MEDICAID, SELFPAY | PROVIDERS: PCP General Practice; Visit Provider Nurse Practitioner | DX: K91.5 Postcholecystectomy syndrome (principal); K21.9 Gastro-esophageal reflux disease without esophagitis; D12.6 Benign neoplasm of colon, unspecified; Z90.49 Acquired absence of other specified parts of digestive tract | CPT/HCPCS: 99212 ==

== ENCOUNTER 2024-02-27 13:17 | Outpatient (AMB) | payer MEDICAID, SELFPAY ==
--- NOTE | 2024-02-27 13:23 | A.OFFVIS_ITS ---
Intake Visit Reasons: OV-Right knee pain/swelling Intake Note: Ramila is a 58 year old female who presents to the office today for right knee pain and swelling. Pt states she has had this pain for a long time. Pt states she has pain when walking, Climbing the stairs, and bending her leg. Pt states recently the pain is starting to go down her leg as well. Pt denies any surgeries or injections. Allergies latex Allergy (Intermediate, Verified 02/27/24 13:23) Hives HPI HPI OV-Right knee pain/swelling: Details: 58-year-old female who presents in the office today for a follow-up of right knee pain and edema. The patient has been having intermittent right knee pain for about 32 years; however, the intensity of the pain has increased since 2021. I last saw the patient in the office on 11/23/23 when she was given an REHAN wrap and discussed the use of a knee brace. We also discussed the role of cortisone injection; however, the patient deferred it due to not experiencing a severe amount of pain at that time. Her MRI of the right knee showed a lymph node; therefore, a referral was placed to vascular surgery for further evaluation of her veins. While in the office today, the patient reports right knee pain and edema. She states she has been suffering with the right knee pain for a prolonged period of time. She mentions experiencing right knee pain while ambulating, climbing the stairs, and bending her lower extremities. She reports recently that her pain has started radiating down her right lower extremity as well. She denies any previous surgeries or injections in the right knee. [facility] Medical History Loose stools Colon cancer screening Overactive bladder Eczema Varicose veins of right lower extremity with inflammation Hepatic steatosis Urgency incontinence Asthma Internal and external hemorrhoids without complication Surgical History Hx of carpal tunnel repair Hx of tubal ligation Hx of cholecystectomy History of colonoscopy Family History Father No problems noted. Mother Hx of diabetes insipidus Social History Unable to assess alcohol history related to: Unable to respond Alcohol intake: never Patient Tobacco Use Status: Current everyday Tobacco user Current occupational status: disabled Current occupation: rt handed Review of Systems Const All systems reviewed & are unremarkable except as noted in HPI and below Physical Exam Const General: cooperative, healthy appearing and no acute distress Orientation/consciousness: patient oriented x3 Resp Effort & Inspection: normal respiratory effort and able to speak in complete sentences Cardio Rate: regular rate Peripheral pulses: Peripheral pulses 2+ throughout GI Palpation (GI): Soft to palpation Skin Lesions: no lesions Rashes: no rashes Neuro General: patient oriented x3 Extrem Other: Right knee: Normal to inspection. No ecchymosis, erythema, or joint effusion. No tenderness to palpation to the medial or lateral joint lines. Full knee extension and flexion. Negative Yon's. Negative anterior draw. NVI. Pain is located along the medial aspect of the right knee. Psych Mental Status: mental status grossly normal Assessment & Plan Assessment & Plan (1) Patellar malalignment syndrome of right knee: Code(s): M23.91 - Unspecified internal derangement of right knee Category: Medical Plan Ms. Santamaria is a 58-year-old female who presents in the office today for a follow-up of right knee pain and edema. The patient has been having intermittent right knee pain for about 32 years; however, the intensity of the pain has increased since 2021. I last saw the patient in the office on 11/23/23 when she was given an REHAN wrap and discussed the use of a knee brace. We also discussed the role of cortisone injection; however, the patient deferred it due to not experiencing a severe amount of pain at that time. Her MRI of the right knee showed a lymph node; therefore, a referral was placed to vascular surgery for further evaluation of her veins. While in the office today, the patient reports right knee pain and edema. She states she has been suffering with the right knee pain for a prolonged period of time. She mentions experiencing right knee pain while ambulating, climbing the stairs, and bending her lower extremities. She reports recently that her pain has started radiating down her right lower extremity as well. She denies any previous surgeries or injections in the right knee. We discussed the role of physical therapy and cortisone injection. The patient deferred both the options because the sessions/appointment will be in the winter . She requested a new knee brace. Therefore, she was provided with a truepull knee brace, off the shelf. She also requested topical pain medication. I have sent a prescription for lidocaine 4% topical cream BID PRN for pain to the pharmacy. X-rays of the right knee, obtained on 11/22/2022, revealed: Redemonstration of patellar malalignment. Medications: New lidocaine 4% (AsperFlex (lidocaine)) 1 appl topical BID PRN 15 grams 3RF pain Patient Instructions: Scribed by Shanae Duckworth medical billing manager, for Corina Hernandez PA-C on 02/27/24 at 1:46 pm EST. Coding Level of Care Code Est Pt Level 3 (95379) Diagnoses Patellar malalignment syndrome of right knee M23.91
== END 2024-02-27 13:55 | disposition home or self-care (01) ==
PROVIDERS: PCP General Practice; Visit Provider Physician Assistant
DX: M23.91 Unspecified internal derangement of right knee (principal)
CPT/HCPCS: 99213

== ENCOUNTER → 2024-02-27 13:17 | Outpatient (BNVA) | payer MEDICAID, SELFPAY | PROVIDERS: PCP General Practice; Visit Provider Physician Assistant | DX: M23.91 Unspecified internal derangement of right knee (principal) | CPT/HCPCS: 99212 ==

== ENCOUNTER 2024-08-05 15:31 | Outpatient (AMB) | payer MEDICAID, SELFPAY ==
--- NOTE | 2024-08-05 15:36 | MHC.OFFVIS ---
Vital Signs 08/05/24 15:43 Height 5 ft 8 in BP 102/56 L Blood Pressure Location Lt brachial Position Sitting Pulse 80 Intake Visit Reasons: 6 month follow up GERD, post jamal Intake Note: Patient in office today in follow up of GERD, post cholecystectomy. Allergies latex Allergy (Intermediate, Verified 08/05/24 15:48) Hives HPI HPI 6 month follow up GERD, post jamal: Details: Assessment & Plan (1) Post-cholecystectomy syndrome: Code(s): K91.5 - Postcholecystectomy syndrome Category: Medical (2) Tubular adenoma of colon: Comment: 2019 colonoscopy 2 TA is repeat in 5 years Code(s): D12.6 - Benign neoplasm of colon, unspecified Category: Medical (3) GERD (gastroesophageal reflux disease): Code(s): K21.9 - Gastro-esophageal reflux disease without esophagitis Category: Medical Plan She has a LOT going on, her mother is in a rehab facility now s/p pneumonia...but they will not bring her for her procedures and she is not eating and keeps saying her stomach is hurting. She is now on 020 20mg bid from her PCP, likely for post jamal gastritis? She did not know why she was on this, except that she has intermittent nausea. She also continues on her carafate qod with good control of her diarrhea. The thoracic x-ray is not yet read so I can not give her much insight into her left flank pain. (from last note: She is having left flank pain that is worse when sitting and not effected by eating or moving her bowels, and it is described as pressure like. ) She is worrried about the possibility of memory loss on omeprazole. I explain that this was found only in 1 small study in [facility] and has not been reproduced and certainly not borne out in long-term prospective studies. This is mary true at her low doses. ROV 6 mos. X-RAY OF THE THORACIC SPINE 12/18/23 FINDINGS: Normal alignment of the thoracic spine. Thoracic vertebral body heights are maintained. Thoracic disc spaces are well-maintained diffusely. A few tiny osteophytes are scattered throughout the thoracic spine. Suboptimally visualized postsurgical changes of the lower cervical spine. Cardiac silhouette is normal in size. Lung parenchyma is well aerated. Surgical clips in the right upper abdomen consistent with prior cholecystectomy. XR/XR thoracic spine 2V IMPRESSION: Minimal degenerative changes of the thoracic spine. TODAY'S VISIT She is no longer taking the omeprazole and carafate. She has a new dx of NIDDM and apparently this was causing a great deal of her GI problems. The diarrhea has stopped since she changed her diet and she is now on metformin. SHe still has left sided intermittent pain, which could be bowels spasm or a pinched throacic nerve. She was worried that it was her liver, but the pain is on the wrong side and I educate her to this. She is stressed that she is losing hair, but this is expalinable wtih the diabetes and the weight loss with resulting nutrient losses. I reassure her that thsi should improve as her diabetes control improves. SHE IS DUE THIS YEAR FOR HER COLONOSCOPY REPEAT so we will get this scheduled. Her asthma is well controlled and she denies any cardiac problems. There are no prior problems with anesthesia or sedation. There are no infectious disease problems. She had a TA of her colonoscopy 3 years ago. (We spent quite a bit of time talking about her mother who had an abnormal CAT scan finding of the transverse colon but has been unable to have a colonoscopy due to cardiac problems and multiple pneumonias) [facility] Medical History Loose stools Colon cancer screening Overactive bladder Eczema Varicose veins of right lower extremity with inflammation Hepatic steatosis Urgency incontinence Asthma Internal and external hemorrhoids without complication Surgical History Hx of carpal tunnel repair Hx of tubal ligation Hx of cholecystectomy History of colonoscopy Family History Father No problems noted. Mother Hx of diabetes insipidus Social History Unable to assess alcohol history related to: Unable to respond Alcohol intake: never Patient Tobacco Use Status: Current everyday Tobacco user Current occupational status: disabled Current occupation: rt handed Review of Systems Const Denies fatigue, Denies fever(s), Denies night sweats, Denies poor appetite and Reports weight loss ENT Reports Normal hearing present, Denies dental pain, Denies dysphagia, Denies hearing loss, Denies mouth pain, Denies odynophagia, Denies throat swelling, Denies tongue swelling and Reports other (Dentition adequate) Card Reports no additional complaints Resp Reports no additional complaints GI Details: Denies abdominal pain, Denies melena, Denies bloating, Denies hematochezia, Denies constipation, Denies GI cramping, Denies dysphagia, Denies excessive flatus, Denies early satiety, Denies heartburn, Denies diarrhea, Denies nausea, Denies odynophagia, Denies vomiting and Denies hematemesis Reports flank pain Musc Reports back pain Skin/Breast Denies pruritus, Denies lesions, Denies rash and Denies jaundice Neuro Reports Normal hearing present and Denies Abnormal speech present Endo Denies fatigue Aller/Immun Denies throat swelling and Denies tongue swelling Physical Exam Vital Signs: Last Vital Signs Pulse 80 08/05/24 15:43 BP 102/56 L 08/05/24 15:43 Const General: cooperative, no acute distress, well developed and well groomed Nutritional Appearance: well nourished and overweight Orientation/consciousness: oriented to person, oriented to place and oriented to time Limitations: No language barrier HEENT Head: Yes normocephalic and Yes atraumatic Eyes General: appearance normal, both eyes and all related structures Pupils: Equal, round and reactive pupils present Neck Neck: Yes normal visual inspection and Yes no lymphadenopathy Thyroid: Thyroid normal Resp Effort & Inspection: normal respiratory effort and able to speak in complete sentences Auscultation: clear to auscultation bilaterally Cardio Rate: regular rate Rhythm: regular rhythm Heart sounds: Normal, physiologic split S2 sound present Peripheral pulses: radial pulses present and posterior tibial pulses present GI Inspection: No distended, No Abdominal panniculus present and Yes obesity Palpation (GI): Soft to palpation, nontender, no guarding, not rigid and No hepatosplenomegaly present Percussion: Yes normal to percussion Auscultation: normal bowel sounds Rectal Exam - Female: deferred Skin General skin exam: no rashes or lesions noted, turgor normal, skin not dry, no jaundice, No spider nevi and no striae Rashes: no rashes Nails: normal Neuro General: oriented to person, oriented to place and oriented to time Cranial nerves: Yes Equal, round and reactive pupils present and Yes Normal hearing present Speech: No Abnormal speech present Extrem General: Yes normal to inspection, No clubbing, No cyanosis and No edema Psych Appearance: grossly normal and well kempt Mental Status: mental status grossly normal Speech and movement: Normal speech and movement present Affect: normal affect Attitude: cooperative Thought process: Normal thought process present and not confabulating Thought content: Normal thought content present Insight: Fair insight present (Psych) Judgement: Fair judgement present (Psych) Results Reviewed Results Reviewed: X-RAY OF THE THORACIC SPINE 12/18/23 FINDINGS: Normal alignment of the thoracic spine. Thoracic vertebral body heights are maintained. Thoracic disc spaces are well-maintained diffusely. A few tiny osteophytes are scattered throughout the thoracic spine. Suboptimally visualized postsurgical changes of the lower cervical spine. Cardiac silhouette is normal in size. Lung parenchyma is well aerated. Surgical clips in the right upper abdomen consistent with prior cholecystectomy. XR/XR thoracic spine 2V IMPRESSION: Minimal degenerative changes of the thoracic spine. Laboratory Tests 12/03/23 15:46 Estimated GFR > 60 Total Bilirubin 0.6 AST 34 H ALT 64 H Alkaline Phosphatase 93 TSH 0.52 Assessment & Plan Assessment & Plan (1) GERD (gastroesophageal reflux disease): Code(s): K21.9 - Gastro-esophageal reflux disease without esophagitis Category: Medical (2) Post-cholecystectomy syndrome: Code(s): K91.5 - Postcholecystectomy syndrome Category: Medical (3) Thoracic back pain: Code(s): M54.6 - Pain in thoracic spine Category: Medical (4) Tubular adenoma of colon: Comment: 2020 colonoscopy 2 TA is repeat in 5 years Code(s): D12.6 - Benign neoplasm of colon, unspecified Category: Medical (5) Pre-op examination: Code(s): Z01.818 - Encounter for other preprocedural examination Category: Medical (6) Left flank pain: Code(s): R10.9 - Unspecified abdominal pain Category: Medical Plan She is no longer taking the omeprazole and carafate. She has a new dx of NIDDM and apparently this was causing a great deal of her GI problems. The diarrhea has stopped since she changed her diet and she is now on metformin. SHe still has left sided intermittent pain, which could be bowels spasm or a pinched throacic nerve. She was worried that it was her liver, but the pain is on the wrong side and I educate her to this. She is stressed that she is losing hair, but this is expalinable wtih the diabetes and the weight loss with resulting nutrient losses. I reassure her that thsi should improve as her diabetes control improves. SHE IS DUE THIS YEAR FOR HER COLONOSCOPY REPEAT so we will get this scheduled. Her asthma is well controlled and she denies any cardiac problems. There are no prior problems with anesthesia or sedation. There are no infectious disease problems. She had a TA of her colonoscopy 3 years ago. (We spent quite a bit of time talking about her mother who had an abnormal CAT scan finding of the transverse colon but has been unable to have a colonoscopy due to cardiac problems and multiple pneumonias) Orders: Orders Colonoscopy - GI Use Only Today D12.6 - Benign neoplasm of colon, unspecified Medications: New bisacodyl (Dulcolax (bisacodyl)) 10 mg (2 x 5 mg) PO BEDTIME 4 tabs 0RF 2 days polyethylene glycol 3350 (Miralax) 238 grams PO ONCE 238 grams 0RF colonoscopy prep 1 day Discontinued omeprazole Discontinued Reason: Doctor's Order 20 mg PO BID 60 caps 6RF K91.5 - Postcholecystectomy syndrome sucralfate (Carafate) Discontinued Reason: Doctor's Order 2 grams (2 x 1 gram) PO QNOON 60 tabs 6RF R19.5 - Other fecal abnormalities Coding Level of Care Code Est Pt Level 4 (71671) Diagnoses GERD (gastroesophageal reflux disease) K21.9 Post-cholecystectomy syndrome K91.5 Thoracic back pain M54.6 Tubular adenoma of colon D12.6 Pre-op examination Z01.818 Left flank pain R10.9
[2024-08-05 15:43] VITALS: BP 102/56; PULSE 80
== END 2024-08-05 16:17 | disposition home or self-care (01) ==
LOC: HO.HGI 15:31
PROVIDERS: PCP General Practice; Visit Provider Nurse Practitioner
DX: K21.9 Gastro-esophageal reflux disease without esophagitis (principal); K91.5 Postcholecystectomy syndrome; Z86.0101 Personal history of adenomatous and serrated colon polyps
CPT/HCPCS: 99214

== ENCOUNTER → 2024-08-05 15:31 | Outpatient (BNVA) | payer MEDICAID, SELFPAY | PROVIDERS: PCP General Practice; Visit Provider Nurse Practitioner | DX: Z01.818 Encounter for other preprocedural examination (principal); K21.9 Gastro-esophageal reflux disease without esophagitis; K91.5 Postcholecystectomy syndrome; M54.6 Pain in thoracic spine; R10.9 Unspecified abdominal pain; D12.6 Benign neoplasm of colon, unspecified | CPT/HCPCS: 99212 ==

== ENCOUNTER 2024-08-20 15:05 | Outpatient (REF) | payer MEDICAID, SELFPAY ==
[2024-08-20 18:09] LABS: CT PCR NOT DETECTED (Not Detect.); NG PCR NOT DETECTED (Not Detect.)
[2024-08-21 11:24] LABS: RPR Rapid Plasma Reagin NON-REACTIVE (NON-REACTIVE)
[2024-08-23 08:32] LABS: HIV AB/AG Nonreactive (Nonreactive); HIV Num 1 0.07 S/CO (0.00-0.99); ~HepC Num1 0.16 S/CO (0.00-0.79); ~Hepatitis C Antibody Nonreactive (Nonreactive)
== END 2024-08-20 15:06 | disposition home or self-care (01) ==
LOC: HO.HHCL 15:05
PROVIDERS: Visit Provider General Practice
DX: Z11.3 Encounter for screening for infections with a predominantly sexual mode of transmission (principal)
CPT/HCPCS: 86592; 86803; 87389; 87491; 87591

== ENCOUNTER 2024-11-30 15:57 | Outpatient (AMB) | payer MEDICAID, SELFPAY ==
--- NOTE | 2024-11-30 16:04 | MHC.OFFVIS ---
Intake Visit Reasons: follow up 1yr Intake Note: Patient is present for 1y follow up Urology Medications: None Blood Thinner: none PVR: 0ml Lobster Catcher Required: No Accompanied by: Self / Same As Patient Allergies latex Allergy (Intermediate, Verified 11/30/24 21:14) Hives Medication List - Last Reconciled 11/30/24 by NIC SpencerP-BC albuterol sulfate 90 mcg/actuation (ProAir HFA) 2 puffs inhalation Q6H PRN budesonide-formoterol 80-4.5 mcg/actuation (Symbicort) 1 inh inhalation BID cholecalciferol (vitamin D3) 50 mcg PO DAILY ibuprofen 800 mg PO Q8H PRN metformin ER 500 mg PO QPM vitamin B comp and C no.3 (B Complex Plus Vitamin C) 1 cap PO DAILY HPI Comments Details: Lydia is a pleasant 58-year-old female patient of Dr. Davila. She has a past medical history of eczema, hepatic steatosis, asthma, internal and external hemorrhoids, overactive bladder, and urgency incontinence. She presents to the office today for follow-up of her overactive bladder and urinary incontinence. In discussion with the patient today she reports to be doing and feeling well. She reports since her last office visit here she has had no urinary issues or concerns. She reports having stop tolterodine as she feels lower urinary tract symptoms have been manageable independently. She does continue to experience episodes of urge incontinence however attempts to perform timed voiding and feels this has been helpful. She also reports recently being diagnosed with prediabetes and has been better with her eating habits and feels this has been also helpful in lower urinary tract symptoms she had been experiencing. Unable to obtain urine for urinalysis today however PVR 1 mL. Previous workup has included a retroperitoneal ultrasound 09/01 noting bilateral kidneys with no calculi, lesions, or hydronephrosis noted. The bladder is well distended and normal. Bilateral ureteral jets are demonstrated. Pre void bladder volume is 182 mL. There is no postvoid residual. Normal renal and bladder ultrasound. When asked patient denies nocturia, hematuria, dysuria, foul smelling urine, changes to urinary stream, flank pain, fever, and or chills. She otherwise offers no other issues or concerns at this time. [facility] Medical History Loose stools Colon cancer screening Overactive bladder Eczema Varicose veins of right lower extremity with inflammation Hepatic steatosis Urgency incontinence Asthma Internal and external hemorrhoids without complication Surgical History Hx of carpal tunnel repair Hx of tubal ligation Hx of cholecystectomy History of colonoscopy Family History Father No problems noted. Mother Hx of diabetes insipidus Social History Unable to assess alcohol history related to: Unable to respond Alcohol intake: never Patient Tobacco Use Status: Current everyday Tobacco user Current occupational status: disabled Current occupation: rt handed Review of Systems Const Reports no additional complaints Eyes Reports no additional complaints ENT Reports no additional complaints Card Reports no additional complaints Resp Reports as per HPI GI Reports as per HPI Reports as per HPI Musc Reports no additional complaints Skin/Breast Reports as per HPI Neuro Reports no additional complaints Psych Reports no additional complaints Endo Reports no additional complaints Rusty/Lymph Reports no additional complaints Aller/Immun Reports no additional complaints Physical Exam Const General: cooperative, healthy appearing, comfortable, no acute distress, well developed, alert and awake Orientation/consciousness: patient oriented x3 Limitations: no limitations HEENT Head: Yes normal to inspection, Yes normocephalic and Yes atraumatic Ears: hearing grossly normal bilaterally Eyes General: appearance normal, both eyes and all related structures Neck Neck: Yes normal visual inspection and Yes trachea midline Chest Chest palpation & inspection: normal inspection of the chest Resp Effort & Inspection: normal respiratory effort and able to speak in complete sentences Cardio Rate: regular rate GI Inspection: Yes normal to inspection General: Yes no CVA tenderness Back/Spine/Pelvis Back: no CVA tenderness Skin General skin exam: no rashes or lesions noted Neuro General: patient oriented x3 Extrem General: Yes normal to inspection Psych Appearance: grossly normal and well kempt Mental Status: mental status grossly normal Speech and movement: Normal speech and movement present and Clear speech present Affect: normal affect Attitude: cooperative Thought process: Normal thought process present Thought content: Normal thought content present Insight: Fair insight present (Psych) Judgement: Fair judgement present (Psych) Assessment & Plan Assessment & Plan (1) Overactive bladder: Code(s): N32.81 - Overactive bladder Category: Medical Plan Unable to obtain urine for urinalysis however PVR 1 mL. She currently denies any bothersome urinary issues or concerns. She reports be happy with current voiding parameters. Will discontinue tolterodine. Will continue with surveillance monitoring. We did discuss bladder triggers and irritants. Information provided regarding pelvic floor exercises. We also discussed the importance of management and diabetes for improvement in lower urinary tract symptoms as well as overall health and well-being. All questions were answered. Follow-up in 1 year with PVR; or sooner with any issues, concerns, and or questions. Patient Instructions: The patient had an opportunity to ask questions regarding the treatment plan. All questions were answered. Physical exam, labs, and imaging were discussed and reviewed in detail. As well as risks, benefits, and discussion of treatment choices. No major barriers to understanding were identified. The patient expressed understanding and agreement with the above treatment plan. The patient was made aware they should contact our office by phone for worsening of their current condition, the appearance of new symptoms, or with any questions or concerns. Compliance is encouraged with any medications and follow up testing that is ordered. It is a privilege to be allowed the opportunity to participate in? your urological care.? Again, if you have any questions or concerns If you have any questions or concerns please do not hesitate to contact me. The office is [phone]. This note is constructed using voice recognition software. While every effort has been made to ensure accuracy sample patternmaker errors may have been included. Yours sincerely, NEEL Spencer Coding Level of Care Code Est Pt Level 3 (48076) Complex EM visit Add On G2211 Diagnoses Overactive bladder N32.81
--- OUTSIDE RECORDS SUMMARY | 2024-11-30 16:35 | XMS_ITS | Encounter Summary ---
Author Organization [employer] Address [address] [facility] [address] [place] [address] Care Team Providers Care Supervisor Paint Department Name Role Phone Mary Anne Davila MD Primary Care Provider [phone] Reason for Visit * Reason Comments Med Refill Encounter Details Date Type Department Care Team ([facility] st Contact Info) Description 12/31/2023 Refill [facility] [address] [place], [place] [phone] Mary Anne Davila MD [address] [place], [place] [phone] Social History Tobacco Use Types Packs/Day Years Used Date Smoking Tobacco: Every Day Cigarettes Cigars Passive Smoke Exposure: Never Smokeless Tobacco: Never Alcohol Use Standard Drinks/Week Comments Never 0 (1 standard drink = 0.6 oz pur e alcohol) Depression Answer Date Recorded Patient Health Questionnaire-9 Score 0 12/03/2023 Patient Health Questionnaire-9 Score 0 12/03/2023 Last PHQ-9: Questionnaire Data Not on file 0 12/03/2023 Housing Stability Answer Date Recorded What is your housing situation today? I have wilmar matthews 09/26/[address] you li ve. Do you have problems with any of the following? None of the above 09/26/2023 Food Insecurity Answer Date Recorded Within the past 12 months, y ou worried that your food would run out before you got money to buy more: Never True 09/26/2023 Within the past 12 months,th e food you bought just didn't last and you didn't have enough money to get more: Never True Transportation Answer Date Recorded In the past 12 months, has l ack of transportation kept you from medical appts, meetings, work or from getting things needed for daily living? No 09/26/2023 Utilities Answer Date Recorded In the past 12 months, has t he electric, gas, oil or water company threatened to shut off services in your home? No 09/26/2023 Depression Answer Date Recorded Patient Health Questionnaire-2 Score 0 12/03/2023 Comments Unknown Sex and Gender Information Value Date Recorded Sex Assigned at Female 03/11/2022 10:15 AM EDT Legal Sex Female 10:15 AM EDT Gender Identity Female 03/11/2022 10:15 AM EDT Sexual Orientation Choose not to disclose 2021 10:15 AM EDT documented as of this encounter Miscellaneous Notes * Telephone Encounter - Valentina Amaro DO - 01/01/2024 11:19 AM EDT Pt needs to be seen for eval. Thank you. documented in this encounter Plan of Treatment Upcoming Encounters Date Type Department Care Team (Late st Contact Info) Description 01/07/2025 3:45 PM EDT Office Visit [facility] [address], [place] [phone] Jacob Dougherty MD [address] [place] [address] documented as of this encounter Visit Diagnoses Not on filedocumented in this encounter Additional Health Concerns Assessment Noted Time PHQ-9 Depression Total Score: 0 12/03/19 24 3:09 PM EDT documented as of this encounter Care Teams Supervisor Paint Department Relationship Specialty Start Date End Date Mary Anne Davila MD [address] [place] [address] [phone] PCP - General Family Medicine 06/22/20 documented as of this encounter
== END 2024-11-30 16:35 | disposition home or self-care (01) ==
LOC: HO.HUSH 15:57
PROVIDERS: PCP General Practice; Visit Provider Nurse Practitioner Family
DX: N32.81 Overactive bladder (principal)
CPT/HCPCS: 99213

== ENCOUNTER → 2024-11-30 15:57 | Outpatient (BNVA) | payer MEDICAID, SELFPAY | PROVIDERS: PCP General Practice; Visit Provider Nurse Practitioner Family | DX: N32.81 Overactive bladder (principal) | CPT/HCPCS: 99212 ==

== ENCOUNTER 2025-02-04 18:21 | Outpatient (REF) | payer MEDICAID, SELFPAY ==
--- OUTSIDE RECORDS SUMMARY | 2025-02-04 15:00 | XMS_ITS | Encounter Summary ---
Author Organization [email or web address] Address [address] [facility] [address] [place] [address] Care Team Providers Care Hedge Fund Principal Name Role Phone Mary Anne Davila MD Primary Care Provider [phone] Reason for Visit * Reason Comments sick visit Encounter Details Date Type Department Care Team ([facility] Contact Info) Description 02/04/2025 3:00 PM EDT Office Visit [facility] [address] [place], [place] [phone] [facility] [address] [place] [address] Puncture wound of plantar aspect of right foot, initial encounter (Primary Dx) Social History Tobacco Use Types Packs/Day Years Used Date Smoking Tobacco: Every Day Cigarettes Cigars Passive Smoke Exposure: Never Smokeless Tobacco: Never Tobacco Cessation:Ready to Q uit: Not Asked; Counseling Given: Not Answered Alcohol Use Standard Drinks/Week Comments Never 0 [...] AM EDT documented as of this encounter Last Filed Vital Signs Vital Sign Reading Time Taken Comments Blood Pressure 110/70 02/04/2025 3:13 PM EDT Pulse 78 02/04/2025 3:13 PM EDT Temperature - - Respiratory Rate 20 02/04/2025 3:13 PM EDT Oxygen Saturation - - Inhaled Oxygen Concentration - - Weight 82 kg (180 lb 12.8 oz) 02/04/2025 3:13 PM EDT Height 172.7 cm (5' 8 ) 02/04/2025 3:13 PM EDT Body Mass Index 27.49 02/04/2025 3:13 PM EDT documented in this encounter Plan of Treatment Scheduled Orders Name Type Priority Associated Diagnoses Orde r Schedule XR Foot 3+ Views Right Imaging Routine Puncture wound of plantar aspect of right foot, initial encounter Expected: 02/04/2025, Expires: 02/04/2026 Wound Culture Microbiology Routine Puncture wound of plantar aspect of right foot, initial encounter Ordered: 02/04/2025 documented as of this encounter Visit Diagnoses Diagnosis Puncture wound of plantar aspect of right foot, initial encounter- Primary documented in this encounter Additional Health Concerns Assessment Noted Time PHQ-9 Depression Total Score: 0 12/03/19 3:09 PM EDT documented as of this encounter Care Teams Hedge Fund Principal Relationship Specialty Start Date End Date Mary Anne Davila MD [address] [place] [phone] PCP - General Family Medicine 06/22/20 documented as of this encounter
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
--- OUTSIDE RECORDS SUMMARY | 2025-02-04 18:24 | XMS_ITS | Encounter Summary ---
Author Organization [employer] Address [address] [facility] 7t [place] [address] Care Team Providers Care Parole Or Probation Officer Name Role Phone Mary Anne Davila MD Primary Care Provider [phone] Encounter Details Date Type Department Care Team (Latest Contact Info) Description 02/04/2025 Travel Social History Tobacco Use Types Packs/Day Years [...] AM EDT documented as of this encounter Plan of Treatment Not on file documented as of this encounter Visit Diagnoses Not on filedocumented in this encounter Additional Health Concerns Assessment Noted Time PHQ-9 Depression Total Score: 0 12/03/19 24 3:09 PM EDT documented as of this encounter Care Teams Parole Or Probation Officer Relationship Specialty Start Date End Date Mary Anne Davila MD [address] [place] [address] PCP - General Family Medicine 06/22/20 documented as of this encounter
--- OUTSIDE RECORDS SUMMARY | 2025-02-04 18:24 | XMS_ITS | Encounter Summary ---
Author Organization [employer] Address 75 [facility] 7t [place] [address] Care Team Providers Care Resource Technician Name Role Phone Mary Anne Davila MD Primary Care Provider [phone] Reason for Referral * Imaging (Routine) - Closed Specialty Diagnoses / Procedures Referred By Contac t Referred To Contact Diagnoses Localized swelling of right lower extremity Procedures MR Knee w/ and w/o Contrast Right CRUTCHES Mary Anne Davila MD [address] [place] [address] Phone: tel: fax: [facility] Scan [address] [place], [place] Phone: tel: fax: Referral ID Status Reason Start Date Expiration Date Visits Re quested Visits Authorized [id number] Closed 06/19/2022 06/19/2023 1 1 Encounter Details Date Type Department Care Team (Late st Contact Info) Description 06/19/2022 Orders Only [facility] [address] [place] [address] Mary Anne Davila MD [address] [place], [place] [phone] Localized swelling of right lower extremity (Primary Dx) Social History Tobacco Use Types Packs/Day Years Used Date Smoking Tobacco: Every Day Cigarettes Cigars Smokeless Tobacco: Never PHQ-2 Answer Date Recorded Patient Health Questionnaire-2 Score 0 05/07/2022 Comments Unknown Sex and Gender Information Value Date Recorded Sex Assigned at Female 03/11/2022 10:15 AM EDT Legal Sex Female 10:15 AM EDT Gender Identity Female 03/11/2022 10:15 AM EDT Sexual Orientation Choose not to disclose 2021 10:15 AM EDT COVID-19 Exposure Response Date Recorded In the last 10 days, have yo u been in contact with someone who was confirmed or suspected to have Coronavirus/COVID-19? No / Unsure 06/07/2022 1:27 PM EST documented as of this encounter Plan of Treatment Scheduled Orders Name Type Priority Associated Diagnoses Orde r Schedule MR Knee w/ and w/o Contrast Right Imaging Routine Localized swelling of right lower extremity Expected: 06/19/2022, Expires: 06/19/2023 documented as of this encounter Visit Diagnoses Diagnosis Localized swelling of right lower extremity- Primary documented in this encounter Care Teams Resource Technician Relationship Specialty Start Date End Date Mary Anne Davila MD [address] [place] [id number] PCP - General Family Medicine 06/22/20 documented as of this encounter
--- OUTSIDE RECORDS SUMMARY | 2025-02-04 18:24 | XMS_ITS | Encounter Summary ---
Author Organization [employer] Address [address] [facility] 7t [place] [address] Care Team Providers Care Recreation Coordinator Name Role Phone Mary Anne Davila MD Primary Care Provider [phone] Reason for Visit * Reason Comments Med Refill Encounter Details Date Type Department Care Team ([facility] st Contact Info) Description 12/31/2023 Refill [facility] MED[facility]INE [address] [place], [place] [phone] Mary Anne Davila MD [address] [place], [place] [phone] Social History Tobacco Use Types Packs/Day Years [...] documented in this encounter Plan of Treatment Not on file documented as of this encounter Visit Diagnoses Not on filedocumented in this encounter Additional Health Concerns Assessment Noted Time PHQ-9 Depression Total Score: 0 12/03/19 24 3:09 PM EDT documented as of this encounter Care Teams Recreation Coordinator Relationship Specialty Start Date End Date Mary Anne Davila MD [address] [place] [address] PCP - General Family Medicine 06/22/20 documented as of this encounter
--- OUTSIDE RECORDS SUMMARY | 2025-02-04 18:24 | XMS_ITS | Encounter Summary ---
Author Organization [employer] Address [address] [facility] 7t [place] [address] Care Team Providers Care Television Reporter Name Role Phone Mary Anne Davila MD Primary Care Provider [phone] Reason for Visit * Reason Onset Date Comments telephone Call 01/31/2025 Encounter Details Date Type Department Care Team ([facility] st Contact Info) Description 01/31/2025 Telephone [facility] MEDICINE [address] [place], [place] [phone] Mary Anne Davila MD [address] [place] [address] telephone Call Social History Tobacco Use Types Packs/Day Years [...] encounter Miscellaneous Notes * Telephone Encounter - Martell Springer RN - 01/31/2025 3:18 PM EDT TC placed to patient [phone] regarding below message. Patient reported 2 nights ago she was getting up at 3am to use the bathroom and she reported feeling nausea, dizziness and questioned if shehad a syncope episode. Patient also reported when she came to she was incontinent of urine. RN advised patient to go to the Walk in Center or ED for further evaluation. Patient reported she wants to see an provider at [facility]. RN again advised patient to go the Walk in Center or ED. Patient reported she prefer an appointment with an provider. RN scheduled an appointment with an provider for 02/04/25 at 3 pm. Patient encouraged to keep this appointment. Patient agreed to the appointment. PT to F/U PRN. * Telephone Encounter - Liz De La Garza - 01/31/2025 2:42 PM EDT Pt walked in requesting pcps nurses give her a call in order to speak with her. Pt wanted to speak with pcp personally but I explained we have a procedure here. Pt states she needs to speak with someone eboni as she has to get herself checked out. documented in this encounter Plan of Treatment Not on file documented as of this encounter Visit Diagnoses Not on filedocumented in this encounter Additional Health Concerns Assessment Noted Time PHQ-9 Depression Total Score: 0 12/03/19 3:09 PM EDT documented as of this encounter Care Teams Television Reporter Relationship Specialty Start Date End Date Mary Anne Davila MD [address] [place] [address] PCP - General Family Medicine 06/22/20 documented as of this encounter
--- OUTSIDE RECORDS SUMMARY | 2025-02-04 18:24 | XMS_ITS | Encounter Summary ---
Author Organization [employer] Address [address] [facility] 7t [place] [address] Care Team Providers Care Garage Hand Name Role Phone Mary Anne Davila MD Primary Care Provider [phone] Encounter Details Date Type Department Care Team (Late st Contact Info) Description 09/27/2024 Orders Only [facility] [address] [place], [place] [phone] Mary Anne Davila MD [address] [place] [address] Social History Tobacco Use Types Packs/Day Years [...] on file documented as of this encounter Procedures Procedure Name Priority Date/Time Associated Diagnosis Comments COLONOSCOPY Routine 04/11/2020 documented in this encounter Results * Colonoscopy (04/11/2020) Colonoscopy Normal Normal Impressions Mary Anne Davila MD - 04/11/2020 2 TA is repeat in 5 years, from 12/2019 us Historical Provider HEALTH MAINTENANCE Final Result documented in this encounter Visit Diagnoses Not on filedocumented in this encounter Additional Health Concerns Assessment Noted Time PHQ-9 Depression Total Score: 0 12/03/19 24 3:09 PM EDT documented as of this encounter Care Teams Garage Hand Relationship Specialty Start Date End Date Mary Anne Davila MD [address] [place] [address] PCP - General Family Medicine 06/22/20 documented as of this encounter
--- OUTSIDE RECORDS SUMMARY | 2025-02-04 18:24 | XMS_ITS | Encounter Summary ---
Author Organization [employer] Address [address] [place] [address] 7 [place] [address] Care Team Providers Care Embosser Operator Name Role Phone Mary Anne Davila MD Primary Care Provider [phone] Encounter Details Date Type Department Care Team (Latest Contact Info) Description 10/03/2021 Abstract [facility] Dental, Provider, DDS Social History Tobacco Use Types Packs/Day Years Used Date Smoking Tobacco: Never Assessed Comments Unknown Sex and Gender Information Value [...] Diagnoses Not on filedocumented in this encounter Care Teams Embosser Operator Relationship Specialty Start Date End Date Mary Anne Davila MD [address] [place] [address] PCP - General Family Medicine 06/22/20 documented as of this encounter
--- OUTSIDE RECORDS SUMMARY | 2025-02-04 18:24 | XMS_ITS | Encounter Summary ---
Author Organization [employer] Address [address] [facility] 7t [place] [address] Care Team Providers Care Recordings Librarian Name Role Phone Mary Anne Davila MD Primary Care Provider [phone] Encounter Details Date Type Department Care Team (Late st Contact Info) Description 03/04/2023 Orders Only [facility] [address] [place], [place] [phone] Mary Anne Davila MD [address] [place] [address] H. pylori infection (Primary Dx) Social History Tobacco Use Types Packs/Day Years Used Date Smoking Tobacco: Every Day Cigarettes Cigars Passive Smoke Exposure: Never Smokeless Tobacco: Never Alcohol Use Standard Drinks/Week Comments Never 0 (1 standard drink = 0.6 oz pur e alcohol) PHQ-2 Answer Date Recorded Patient Health Questionnaire-2 Score 0 08/29/2022 Housing Stability Answer Date Recorded What is your housing situation today? I have wilmar matthews 02/25/[address] you li ve. Do you have problems with any of the following? None of the above 02/25/2023 Food Insecurity Answer Date Recorded Within the past 12 months, y ou worried that your food would run out before you got money to buy more: Never True 02/25/2023 Within the past 12 months,th e food you bought just didn't last and you didn't have enough money to get more: Never True Transportation Answer Date Recorded In the past 12 months, has l ack of transportation kept you from medical appts, meetings, work or from getting things needed for daily living? Yes, it has kept me from medical appointments or getting medications. 02/21/2023 Utilities Answer Date Recorded In the past 12 months, has t he electric, gas, oil or water company threatened to shut off services in your home? No 02/25/2023 Depression Answer Date Recorded Patient Health Questionnaire-2 Score 0 08/29/2022 Comments Unknown Sex and Gender Information Value Date Recorded Sex Assigned at Female 03/11/2022 10:15 AM EDT Legal Sex Female 10:15 AM EDT Gender Identity Female 03/11/2022 10:15 AM EDT Sexual Orientation Choose not to disclose 2021 10:15 AM EDT documented as of this encounter Plan of Treatment Not on file documented as of this encounter Visit Diagnoses Diagnosis H. pylori infection- Primary Helicobacter pylori (H. pylori) documented in this encounter Care Teams Recordings Librarian Relationship Specialty Start Date End Date Mary Anne Davila MD [address] [place] [address] PCP - General Family Medicine 06/22/20 documented as of this encounter
--- OUTSIDE RECORDS SUMMARY | 2025-02-04 18:24 | XMS_ITS | Encounter Summary ---
Author Organization [employer] Address [address] [facility] 7t [place] [address] Care Team Providers Care Tube And Manifold Builder Name Role Phone Mary Anne Davila MD Primary Care Provider [phone] Reason for Referral * Consultation (Routine) - Closed Specialty Diagnoses / Procedures Referred By Contac t Referred To Contact Urology Diagnoses Overactive bladder Mary Anne Davila MD [address] [place] [address] Phone: tel: fax: Glendy Patel NP [address] [place] [address] Phone: tel: Referral ID Status Reason Start Date Expiration Date V isits Requested Visits Authorized [id number] Closed Specialty Services Required 09/08/2023 09/07/2024 10 10 Encounter Details Date Type Department Care Team (Late st Contact Info) Description 09/15/2023 Orders Only [facility] MED[facility]INE [address] [place] [address] Mary Anne Davila MD [address] [place] [address] Overactive bladder (Primary Dx) Social History Tobacco Use Types [...] of this encounter Plan of Treatment Scheduled Referrals Name Type Priority Associated Diagnoses Orde r Schedule Referral to Urology Outpatient Referral Routine Overactive bladder Expected: 09/15/2023 (Approximate), Expires: 09/14/2024 documented as of this encounter Visit Diagnoses Diagnosis Overactive bladder- Primary Hypertonicity of bladder documented in this encounter Care Teams Tube And Manifold Builder Relationship Specialty Start Date End Date Mary Anne Davila MD [address] [place] [address] PCP - General Family Medicine 06/22/20 documented as of this encounter
== END 2025-02-04 18:22 | disposition home or self-care (01) ==
LOC: HO.HHCLNP 18:21
PROVIDERS: Visit Provider Registered Nurse
DX: S91.331A Puncture wound without foreign body, right foot, initial encounter (principal)
CPT/HCPCS: 87070; 87077; 87147; 87186; 87205

== ENCOUNTER 2025-03-12 10:38 | Emergency (ER) | payer MEDICAID, SELFPAY ==
[2025-03-12 10:39] VITALS: BP 132/77; PULSE 66; RESP 20; TEMP 36.2; O2SAT 98; BMI 27.4
[2025-03-12 11:08] VITALS: BP 138/74; PULSE 68; RESP 20; TEMP 36.7; O2SAT 96
--- OUTSIDE RECORDS SUMMARY | 2025-03-12 11:27 | XMS_ITS | Encounter Summary ---
Author Organization [facility] [employer] Address [address] [facility] 7t [place] [address] Care Team Providers Care Mechanical Ordnance Assembler Name Role Phone Mary Anne Davila MD Primary Care Provider [phone] Reason for Referral * Consultation (Routine) - Closed Specialty Diagnoses / Procedures Referred By Contac t Referred To Contact Urology Diagnoses Overactive bladder Mary Anne Davila MD [address] [place] [address] Phone: tel: fax: Glendy Patel NP [address] [place] [address] Phone: tel: Referral ID Status Reason Start Date Expiration Date V isits Requested Visits Authorized [id number] Closed Specialty Services Required 09/08/2023 09/07/2024 10 10 Encounter Details Date Type Department Care Team (Late st Contact Info) Description 09/15/2023 Orders Only [facility]INE [address] [place] [address] Mary Anne Davila MD [address] [place] [address] Overactive bladder (Primary Dx) Social History Tobacco [...] bladder documented in this encounter Care Teams Mechanical Ordnance Assembler Relationship Specialty Start Date End Date Mary Anne Davila MD [address] [place] [address] PCP - General Family Medicine 06/22/20 documented as of this encounter
--- OUTSIDE RECORDS SUMMARY | 2025-03-12 11:27 | XMS_ITS | Encounter Summary ---
Author Organization [employer] Address [address] [place] [address] 7 [place] [address] Care Team Providers Care Or Nurse Manager Name Role Phone Mary Anne Davila MD Primary Care Provider [phone] Encounter Details Date Type Department Care Team (Latest Contact Info) Description 10/03/2021 Abstract [facility] CONVERSION[facility] Dental, Provider, DDS Social History Tobacco [...] on filedocumented in this encounter Care Teams Or Nurse Manager Relationship Specialty Start Date End Date Mary Anne Davila MD [address] [place] [address] PCP - General Family Medicine 06/22/20 documented as of this encounter
--- OUTSIDE RECORDS SUMMARY | 2025-03-12 11:27 | XMS_ITS | Encounter Summary ---
Author Organization [employer] Address [address] [facility] 7t [place] [address] Care Team Providers Care Enthone Solder Stripper Name Role Phone Mary Anne Davila MD Primary Care Provider [phone] Encounter Details Date Type Department Care Team (Late st Contact Info) Description 09/27/2024 Orders Only [facility] MEDICINE [address] [place], [place] [phone] Mary Anne Davila MD [address] [place] [address] Social History Tobacco Use Types Packs/Day Years [...] Procedure Name Priority Date/Time Associated Diagnosis Comments GRAM STAIN RESULT (NON ORDERABLE) Routine 02/04/2025 4:18 PM EDT HM COLONOSCOPY Routine 04/11/2020 documented in this encounter Results * Gram Stain Result (02/04/2025 4:18 PM EDT) 02/04/2025 4:18 PM EDT 02/04/2025 6:22 PM EDT Comment:Foot Rt Narrative [facility] - 02/07/2025 7:29 AM EDT Gram stain results: No polys 1+ epithelial cells 1+ Gram-positive cocci Routine Culture Report - external Routine Culture 4+ SKIN CHANDAN Staphylococcus aureus Quant Org ID 4+ Streptococcus pyogenes (Grp A) Quant Org ID 4+ Susc N/A Susceptibility not routinely performed on this isolate. Staphylococcus aureus: Clindamycin <=0.25(S) Staphylococcus aureus: Erythromycin >=8(R) Staphylococcus aureus: Levofloxacin <=0.12(S) Staphylococcus aureus: Oxacillin <=0.25(S) Staphylococcus aureus: Penicillin-G >=0.5(R) Staphylococcus aureus: Tetracycline >=16(R) Staphylococcus aureus: Trimethoprim/Sulfamethoxazole <=10(S) Specimen Source: Foot Right [facility] [employer] HISTORICAL/NON ORDERABLE LABS Final Result [facility] [address] [place] [address] [phone] * Hm Colonoscopy (04/11/2020) Colonoscopy Normal Normal Impressions Mary Anne Davila MD - 04/11/2020 2 TA is repeat in 5 years, from 12/2019 us Historical Provider HEALTH MAINTENANCE Final Result documented in this encounter Visit Diagnoses Not on filedocumented in this encounter Additional Health Concerns Assessment Noted Time PHQ-9 Depression Total Score: 0 12/03/19 24 3:09 PM EDT documented as of this encounter Care Teams Enthone Solder Stripper Relationship Specialty Start Date End Date Mary Anne Davila MD [address] [place] [address] PCP - General Family Medicine 06/22/20 documented as of this encounter
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
--- OUTSIDE RECORDS SUMMARY | 2025-03-12 11:27 | XMS_ITS | Encounter Summary ---
Author Organization [employer] Address [address] [facility] [address] [place] [address] Care Team Providers Care Milk Bottler Name Role Phone Mary Anne Davila MD Primary Care Provider [phone] Encounter Details Date Type Department Care Team (Late st Contact Info) Description 03/04/2023 Orders Only [facility] [address] [place] [address] Mary Anne Davila MD [address] [place] [address] H. pylori infection (Primary Dx) Social History [...] pylori) documented in this encounter Care Teams Milk Bottler Relationship Specialty Start Date End Date Mary Anne Davila MD [address] [place] [address] PCP - General Family Medicine 06/22/20 documented as of this encounter
--- OUTSIDE RECORDS SUMMARY | 2025-03-12 11:27 | XMS_ITS | Encounter Summary ---
Author Organization [employer] Address [address] [facility] [address] [place] [address] Care Team Providers Care Chef Manager Name Role Phone Mary Anne Davila MD Primary Care Provider [phone] Reason for Referral * Imaging (Routine) - Closed Specialty Diagnoses / Procedures Referred By Contac t Referred To Contact Diagnoses Localized swelling of right lower extremity Procedures MR Knee w/ and w/o Contrast Right CRUTCHES Mary Anne Davila MD [address] [place] [address] Phone: tel: fax: [facility] MRI and CT Scan [address], [place] Phone: tel: fax: Referral ID Status Reason Start Date Expiration Date Visits Re quested Visits Authorized [id number] Closed 06/19/2022 06/19/2023 1 1 Encounter Details Date Type Department Care Team (Late st Contact Info) Description 06/19/2022 Orders Only [facility] [address] [place] [address] Mary Anne Davila MD [address] [place], [place] [phone] Localized swelling of right lower extremity (Primary [...] Primary documented in this encounter Care Teams Chef Manager Relationship Specialty Start Date End Date Mary Anne Davila MD [address] [place] [phone] PCP - General Family Medicine 06/22/20 documented as of this encounter
--- OUTSIDE RECORDS SUMMARY | 2025-03-12 11:27 | XMS_ITS | Encounter Summary ---
Author Organization [employer] Address [address] [facility] [address] [place] [address] Care Team Providers Care Want Ad Supervisor Name Role Phone Mary Anne Davila MD Primary Care Provider [phone] Reason for Visit * Reason Comments Med Refill Encounter Details Date Type Department Care Team ([facility] st Contact Info) Description 12/31/2023 Refill [facility] MEDICINE [address] [place], [place] [phone] Mary Anne Davila MD [address] [place], [place] [phone] Social History Tobacco Use Types Packs/Day Years [...] documented as of this encounter Care Teams Want Ad Supervisor Relationship Specialty Start Date End Date Mary Anne Davila MD [address] [place] [address] PCP - General Family Medicine 06/22/20 documented as of this encounter
--- NOTE | 2025-03-12 12:14 | ED.GENADULT ---
HPI - General Adult General Chief complaint: Back Pain/Injury Stated complaint: Severe lower Back pain Time Seen by Provider: 03/12/25 11:08 Source: patient, RN notes reviewed and old records reviewed Mode of arrival: wheelchair Limitations: no limitations History of Present Illness ED Provider: Dr. Britney Murillo HPI narrative: 59-year-old female with a history of prediabetes presenting with sacral pain after lifting her mother out of a vehicle 3 days ago. Patient states that she has chronic back pain and was helping her mother out of the car when she feels that she may have injured her low back. Pain is constant since it started and worsening over time. She initially did not feel pain but this became more substantial today. Has been taking Motrin without relief of pain. Last dose was yesterday. Denies loss of bowel or bladder control, direct injury to the spine, falling, numbness/tingling/weakness of the extremities, history of IVDA or fever. Related Data Home Medications ?Medication ?Instructions ?Recorded ?Confirmed ibuprofen 800 mg tablet 800 mg PO Q8H PRN pain 08/06/21 11/30/24 albuterol sulfate 90 mcg/actuation 2 puff inhalation Q6H PRN 05/01/22 11/30/24 aerosol inhaler (ProAir HFA) budesonide-formoterol HFA 80 1 inh inhalation BID 05/01/22 11/30/24 mcg-4.5 mcg/actuation aerosol inhaler (Symbicort) cholecalciferol (vitamin D3) 50 50 mcg PO DAILY 05/01/22 11/30/24 mcg (2,000 unit) capsule metformin 500 mg tablet,extended 500 mg PO QPM 11/30/24 11/30/24 release 24 hr vitamin B comp and C no.3 15 mg-10 1 cap PO DAILY 11/30/24 11/30/24 mg-50 mg-5 mg-300 mg capsule (B Complex Plus Vitamin C) Previous Rx's ?Medication ?Instructions ?Recorded bisacodyl 5 mg tablet,delayed 20 mg (4 x 5 mg) PO ONCE 02/19/25 release (Dulcolax (bisacodyl)) colonoscopy prep 1 day #4 tabs polyethylene glycol 3350 17 238 g PO ONCE 1 day #238 grams 02/19/25 gram/dose oral powder (Miralax) methocarbamol 500 mg tablet 1,000 mg (2 x 500 mg) PO QID #20 03/12/25 tabs Allergies Allergy/AdvReac Type Severity Reaction Status Date / Time latex Allergy Intermediate Hives Verified 03/12/25 10:44 Review of Systems Review of Systems: As per HPI, full review of systems performed and negative but for the above mentioned pertinent positives and negatives. [facility] Past Medical History Medical History Loose stools Colon cancer screening Overactive bladder Eczema Varicose veins of right lower extremity with inflammation Hepatic steatosis Urgency incontinence Asthma Internal and external hemorrhoids without complication Surgical History Hx of carpal tunnel repair Hx of tubal ligation Hx of cholecystectomy History of colonoscopy Family History Family History Father No problems noted. Mother Hx of diabetes insipidus Social History Social History Alcohol intake: never Patient Tobacco Use Status: Current everyday Tobacco user Advance Directives: No Advance Directives Information Provided: Yes Do you have a plan to hurt others: No Plan Current occupational status: disabled Current occupation: rt handed Physical Exam ED Exam Exam: GENERAL: Nontoxic-Appearing, appears uncomfortable. SKIN: Normal skin color for ethnicity, warm, dry, no rashes noted. HEENT: Normocephalic, atraumatic, no stridor, dry mucous membranes, dentition intact, EOMI, PERRLA. NECK: Soft, supple, full ROM, midline structures nontender, no step-offs, no deformities, no lymphadenopathy. CHEST: Heart regular rhythm, no murmurs, symmetric chest rise and fall. PULMONARY: Clear to auscultation bilaterally, diminished at the bases, no labored breathing, no wheezes/rhales/rhonchi. ABDOMINAL: Soft, nondistended, nontender, positive bowel sounds in all quadrants. : Deferred. MUSCULOSKELETAL: Normal tone, full range of motion, no deformities, no peripheral edema, no step-offs in the spine, tenderness at the bilateral SI joints. NEURO: Alert and oriented x3, CN II through XII intact, equal strength and sensation bilateral upper and lower extremities, no focal neurologic deficits. PSYCHIATRIC: Flat affect, fluid speech, good eye contact and appropriate demeanor. Vital Signs: Vital Signs - 24 hr 03/12/25 10:39 03/12/25 11:08 03/12/25 12:55 Temperature 97.2 F 98.0 F 97.9 F Pulse Rate 66 68 74 Respiratory Rate 20 20 14 Blood Pressure 132/77 138/74 124/62 Pulse Oximetry 98 96 96 Oxygen Delivery Method Room Air Room Air Room Air BMI result Body Mass Index 27.4 Medications Administered Discontinued Medications Generic Name Dose Route Start Last Admin Trade Name Schuylerq PRN Reason Stop Dose Admin Acetaminophen 975 mg 03/12/25 12:10 03/12/25 12:18 Acetaminophen 325 Mg Tablet PO 03/12/25 12:11 975 mg ONCE ONE Administration Dexamethasone Sodium Phosphate 10 mg 03/12/25 12:10 03/12/25 12:19 Dexamethasone Sod Phosphate 10 Mg/Ml Vial IM 03/12/25 12:11 10 mg ONCE ONE Administration Diazepam 5 mg 03/12/25 12:10 03/12/25 12:19 Diazepam 5 Mg Tablet PO 03/12/25 12:11 5 mg ONCE ONE Administration Medical Decision Making Medical Decision Making MDM Narrative: Patient presents today with a chief complaint of back pain. Differential diagnosis includes musculoskeletal pain, osseous abnormality such as fracture or tumor, infection, spinal cord pathology such as cauda equina syndrome, ligamentous or disc pathology, vascular abnormalities, among many others. I reviewed the list of red flag features such as trauma, weight loss, abnormal neurological findings such as weakness, bowel or bladder incontinence, saddle paresthesia, as well as history of cancer, IV drug abuse, fever, to list a few. Based on history and physical examination, no indication for imaging in the setting of atraumatic low back pain. Patient with tenderness of the bilateral SI joints on exam. Suspect low back strain after lifting her mother out of a car last week. Plan for muscle relaxers, steroids and outpatient follow up. Discussed red flag symptoms of back pain as well as strict return precautions to the emergency department. Patient understands and agrees with plan for discharge. Discharged home in stable condition. Differential Diagnosis Differential Diagnoses: The differential diagnosis associated with the presentation includes (As above) Admission/Observation Consideration of admission/observation: Escalation of care including admission/observation considered External Record Review External record reviewed: Inpatient record Chronic Conditions Patient?s care impacted by: Other (Prediabetes, chronic back pain) Discharge Plan Discharge Clinical Impression: SI (sacroiliac) joint dysfunction, Acute myofascial strain of lumbosacral region Patient Disposition: Home, Self-Care Instructions: Sacroiliitis (ED), Lower Back Exercises (ED) Additional Instructions: Your back pain is due to a condition called sacroiliitis with some inflammation of the sciatic nerve as well. This is due to a strain in your low back. We treat this with muscle relaxers, rest, hot and cold compresses. If you develop any new or worsening symptoms you should return to the emergency department immediately. This includes: Fevers greater than 100?, worsening pain despite medication, inability to ambulate, loss of bowel or bladder control, any new symptom that concerns you. Call 911 with any medical emergency. Do not drive while taking muscle relaxers as they can make you drowsy. Prescriptions: New methocarbamol 500 mg tablet 1,000 mg PO QID Qty: 20 0RF No Action bisacodyl [Dulcolax (bisacodyl)] 5 mg tablet,delayed release (DR/EC) 20 mg PO ONCE 1 Days Qty: 4 0RF Rx Instructions: the day before colonoscopy take 2 pills at 12pm and 2 pills at 5pm with plenty of water polyethylene glycol 3350 [Miralax] 17 gram/dose powder 238 g PO ONCE 1 Days Qty: 238 0RF Rx Instructions: THE DAY BEFORE your procedure mix entire bottle with 64 ounces of Gatorade- no red, blue or purple. AT 5PM Start drinking 1 cup every 15minutes until half is gone. Continue drinking plenty of clear liquids. AT 10PM Finish drinking remaining prep. ibuprofen 800 mg tablet 800 mg PO Q8H PRN (Reason: pain) albuterol sulfate [ProAir HFA] 90 mcg/actuation HFA aerosol inhaler 2 puff inhalation Q6H PRN budesonide-formoterol [Symbicort] 80-4.5 mcg/actuation HFA aerosol inhaler 1 inh inhalation BID cholecalciferol (vitamin D3) 50 mcg (2,000 unit) capsule 50 mcg PO DAILY metformin 500 mg tablet extended release 24 hr 500 mg PO QPM B Complex Plus Vitamin C 39-50-00-5-300 mg capsule 1 cap PO DAILY Stand Alone Forms: Work/School Release Print Language: Brazilian
[2025-03-12 12:55] VITALS: BP 124/62; PULSE 74; RESP 14; TEMP 36.6; O2SAT 96
[2025-03-12 14:27] VITALS: BP 124/62; PULSE 74; RESP 14; TEMP 36.6; O2SAT 96
== END 2025-03-12 14:28 | disposition home or self-care (01) ==
PROVIDERS: Emergency Provider Emergency Medicine; PCP General Practice
DX: S39.012A Strain of muscle, fascia and tendon of lower back, initial encounter (principal); F17.210 Nicotine dependence, cigarettes, uncomplicated; X58.XXXA Exposure to other specified factors, initial encounter; Y93.9 Activity, unspecified; Y92.9 Unspecified place or not applicable; Y99.8 Other external cause status; Z79.899 Other long term (current) drug therapy
CPT/HCPCS: 96372; 99283; 99284; J1100